=== PATIENT | female | born 1960 | race Caucasian/White ===

== ENCOUNTER 2024-06-15 23:26 | Inpatient (IN) | payer MEDICARE, BC ==
[~2024-06-15] VITALS: Ht 162.6 cm; Wt 87.5 kg
[2024-06-16] LABS: Basophils # (auto) 0 10 ^3/uL (0-0.2); Basophils % (auto) 0.3 % (0.0-2.0); Eosinophils # (auto) 0.1 10 ^3/uL (0-0.8); Eosinophils % (auto) 0.9 % (0.0-7.0); Hematocrit 44.5 % (36.0-46.0); Hemoglobin 15.5 g/dL (12.2-16.2); Lymphocytes # (auto) 1.7 10 ^3/uL (0.4-5.4); Lymphocytes % (auto) 12.2 % (10.0-50.0); Mean Corpuscular Hemoglobin 32.5 pg (28.0-32.0); Mean Corpuscular Hgb Conc. 34.9 g/dL (32.0-36.0); Mean Corpuscular Volume 93.2 fL (80.0-100.0); Monocytes # (auto) 1.8 10 ^3/uL (0-1.3); Monocytes % (auto) 13.1 % (0.0-12.0); Neutrophils % (auto) 73.5 % (37.0-80.0); Platelet Count (auto) 298 10^3/uL (140-450); Red Blood Cells 4.78 10^6/uL (4.0-5.20); Red Cell Distribution Width 13.5 % (11.8-14.3); White Blood Cell 13.7 10^3/uL (4.4-10.8)
[2024-06-16] MEDS: IOHEXOL 300 MG/ML 100ML BOTTLE IJ ONE (00:06)
[2024-06-16 00:12] LABS: Alanine Aminotransferase 10 U/L (7-40); Albumin 4.2 g/dL (3.2-4.8); Alkaline Phosphatase 57 U/L (46-116); Anion Gap 9 (5-15); Aspartate Aminotransferase < 8 U/L (13-40); BUN/Creatinine Ratio 14.9 (10.0-20.0); Blood Urea Nitrogen 10 mg/dL (9-23); Calcium 9.2 mg/dL (8.7-10.4); Carbon Dioxide 16 mmol/L (20-31); Chloride 112 mmol/L (98-107); Glucose 91 mg/dL (74-106); Lipase 34 U/L (12-53); Sodium 137 mmol/L (136-145); Total Protein 6.5 g/dL (5.7-8.2)
--- NOTE | 2024-06-16 00:14 | ED.PDOC ---
GI ASSESSMENT HPI Comments HPI: Poor Historian. 64-year-old female brought in by ambulance from [facility] for further evaluation and possible surgical evaluation. Patient has been complaining of nausea vomiting and right flank right lower back pain with mild right upper quadrant pain for the last three days. The pain is nonspecific. Patient was evaluated that facility and was found with slight WBC of 14 and anion gap of 22 with normal glucose. Normal lipase. Elevated lactic acid. Patient denies any vaginal bleeding or discharge or symptoms. Denies any urinary symptoms. Patient was accepted by our ER provider Dr. Dutton earlier. Patient had a CT scan of abdomen and pelvis without contrast which showed an impression of no acute abdominal or pelvic finding, hepatic steatosis, hepatic cyst, bilateral parapelvic cysts, no hydronephrosis, no intrarenal calculi or ureteral calculi, CT scan also specifically mentions under gallbladder and biliary tree that the gallbladder is unremarkable. No biliary ductal dilatation. No inflammatory changes surrounding gallbladder. Incidental note of pulmonary nodule. Patient had a right upper quadrant ultrasound which showed an impression of distended gallbladder with gallbladder sludge. Positive reported sonographic Andersen sign. Acute cholecystitis not excluded. Although no gallbladder wall thickening is seen. Correlate with clinical findings. Possible mild hepatic steatosis. Moderate right hydronephrosis, obstructive uropathy not excluded. Patient received prior to arrival: Zofran, morphine, Dilaudid, 1 L normal saline bolus, cefoxitin, Dilaudid, Zofran, Dilaudid, Dilaudid, Dilaudid, Past Medcial History: Past Surgical History: REVIEW OF SYSTEMS: CONSTITUTIONAL: Denies acute: fever, diaphoresis, chills, HEAD: Denies acute: headache, photophobia Eyes: Denies acute: Double vision, vision loss, eye pain, eye discharge. EARS: Denies acute: tinnitus, hearing loss, ear discharge, ear pain, THROAT: Denies acute: sore throat, swelling, difficulty swallowing , pain with swallowing, change in voice. NECK: Denies acute: neck pain, neck swelling, stiff neck. HEART: Denies acute : chest pain, palpitations, LUNGS: Denies acute: SOB, wheezing, cough, hemoptysis ABDOMEN: Denies acute: diarrhea, melena , hematemesis, hematochezia SKIN: Denies acute: rash, redness, lesions, itchiness. EXTREMITIES: Denies acute: calf pain, numbness, tingling, weakness, denies pain in extremity. Neuro: Denies acute: focal neurological deficit, motor or sensory focal neurological deficit, tremors, seizure like activity, confusion, dizziness, change in mental status, loss of bowel or bladder function, cauda equina like symptoms. : Denies acute: dysuria, hematuria, increase in urinary frequency. PSYCH: Denies acute: hallucination, suicidal ideation, homicidal ideation. FEMALE: Denies acute: abnormal vaginal bleeding, foul odor, unusual discharge. PHYSICAL EXAM: General: [id number] acute distress, awake and alert. Head: normocephalic, atraumatic. Neck: supple, trachea is midline, no swelling. Throat: Normal phonation. Eyes:, no erythema, no purulent discharge, no proptosis, no icterus. Heart: regular rate, regular rhythm, no significant murmur appreciated. Lungs: no apparent respiratory distress, Able to speak in full sentences. No wheezing, no rhonchi, no crackles. No stridors Clear to auscultation bilaterally. Abdomen: Right upper quadrant tender to palpation, non distended, soft, no guarding, no rebound, + bowel sounds. Right flank and right lumbosacral region is tender to palpation. No lesions appreciated over the area of pain. Neuro: Awake, Alert, oriented to name, self, situation, follows commands GCS=15. Speech is normal. Skin: no petechia, no purpura, no cyanosis, non-pale, not jaundice. Lower extremities: --no - Pitting edema no deformity, no focal swelling, no calf TTP. Makes eye contact. moves all four extremities. Face: no apparent facial droop. CVA tenderness to percussion on the right Chief Complaint: Abdominal Pain Time Seen by MD: 23:28 Reviewed Notes: Nurses Notes, Allergies Allergies: Coded Allergies: Codeine (Verified Allergy, Unknown, 06/15/24) Penicillins (Verified Allergy, Unknown, 06/15/24) Information Source: Patient, Transfer Record, Emergency Med Personnel Mode of Arrival: EMS Was a procedure done? Was a procedure done?: No GI differential Dx Differential Diagnosis: Other (DDX include Diverticulitis, colitis, gastroenteritis, acute abdomen, SBO, enteritis, constipation, volvulus, appendicitis, Gallbladder disease, choledocolithiasis, ascending cholangitis, pancreatitis, intraAbdominal mass/neoplasm, hepatitis, UTI, pylonephritis, kidney stone, aneurysm, dissection, Inflammatory bowel disease, gastroparesis, ischemic bowel, ovarian torsion, ovarian cyst/mass, tubo-ovarian abscess, PID, STD.) X-Ray, Labs, Meds, VS Vital Signs Date Time Temp Pulse Resp B/P (MAP) Pulse Ox O2 Delivery O2 Flow Rate FiO2 06/16/24 00:54 142/100 06/16/24 00:30 99 Room Air* 0 21 06/16/24 00:30 98.6 63 14 142/100 (114) 99 98.6 06/15/24 23:30 98.8 64 18 142/100 (114) 99 Lab Test 06/16/24 01:21 06/16/24 00:36 06/15/24 23:42 Range/Units Urine Color Light-yellow Yellow Urine Clarity Clear Clear Urine pH 5.0 5.0-9.0 Urine Specific [place] 1.018 1.001-1.035 Urine Protein Negative Negative Urine Ketones 3+ H Negative Urine Blood 2+ H Negative /uL Urine Nitrite Negative Negative Urine Bilirubin Negative Negative Urine Urobilinogen Normal Negative mg/dL Urine Leukocyte Esterase 3+ Negative /uL Urine RBC 11 0 - 4 /hpf Urine WBC 32 0 - 5 /hpf Urine Squamous Epithelial Cells Few <5 /hpf Urine Bacteria None seen None Seen /hpf Urine Mucus Few None Seen Urine Glucose Normal Normal mg/dL Troponin I High Sensitivity 7 8 </=34 ng/L White Blood Count 13.7 H 4.4-10.8 10^3/uL Red Blood Count 4.78 4.0-5.20 10^6/uL Hemoglobin 15.5 12.2-16.2 g/dL Hematocrit 44.5 36.0-46.0 % Mean Corpuscular Volume 93.2 80.0-100.0 fL Mean Corpuscular Hemoglobin 32.5 H 28.0-32.0 pg Mean Corpuscular Hemoglobin Concent 34.9 32.0-36.0 g/dL Red Cell Distribution Width 13.5 11.8-14.3 % Platelet Count 298 140-450 10^3/uL Mean Platelet Volume 7.2 6.9-10.8 fL Neutrophils (%) (Auto) 73.5 37.0-80.0 % Lymphocytes (%) (Auto) 12.2 10.0-50.0 % Monocytes (%) (Auto) 13.1 H 0.0-12.0 % Eosinophils (%) (Auto) 0.9 0.0-7.0 % Basophils (%) (Auto) 0.3 0.0-2.0 % Neutrophils # (Auto) 10.0 H 1.6-8.6 10 ^3/uL Lymphocytes # (Auto) 1.7 0.4-5.4 10 ^3/uL Monocytes # (Auto) 1.8 H 0-1.3 10 ^3/uL Eosinophils # (Auto) 0.1 0-0.8 10 ^3/uL Basophils # (Auto) 0 0-0.2 10 ^3/uL Nucleated Red Blood Cells 0.0 % Sodium Level 137 136-145 mmol/L Potassium Level 4.0 3.5-5.1 mmol/L Chloride Level 112 H 98-107 mmol/L Carbon Dioxide Level 16 L 20-31 mmol/L Anion Gap 9 5-15 Blood Urea Nitrogen 10 9-23 mg/dL Creatinine 0.67 0.550-1.02 mg/dL Glomerular Filtration Rate Calc 96 >90 mL/min BUN/Creatinine Ratio 14.9 10.0-20.0 Serum Glucose 91 74-106 mg/dL Lactic Acid Level 0.9 0.4-2.0 mmol/L Calcium Level 9.2 8.7-10.4 mg/dL Total Bilirubin 1.0 0.2-1.0 mg/dL Aspartate Amino Transferase (AST) < 8 L 13-40 U/L Alanine Aminotransferase (ALT) 10 7-40 U/L Alkaline Phosphatase 57 46-116 U/L Total Protein 6.5 5.7-8.2 g/dL Albumin 4.2 3.2-4.8 g/dL Lipase 34 12-53 U/L Current Medications Medications (Trade) Dose Ordered Sig/Yazan Route Start Time Stop Time Status Last Admin Fentanyl Citrate 100 mcg ONCE ONCE IV 06/16/24 00:40 06/16/24 00:41 DC 06/16/24 00:54 Time of 1ST Reevaluation: 03:18 Reevaluation 1ST: Improved Patient Education/Counseling: Diagnosis, Treatment Family Education/Counseling: No Family Present Comments Patient presented with the above HPI.-----abdominal pain/flank pain-workup was initiated. patient was found with the above mentioned diagnosis. Patient was given: Fentanyl Patient ED course and VS have been stabilized. Patient has been reassessed in the ED and remained in a stable condition. Pertinent incidental findings were discussed with the patient and/or family. Patient/family voices understanding and is agreeable with plan. Patient has been observed in the ED adequate length of time to insure improvement/stability. patient was admitted to the medicine team for further evaluation and treatment of their presentation. Patient may benefit from urology and gastroenterology consultation while in the hospital. Patient was transferred to our facility specifically for surgical evaluation as well. All the reports of any imaging studies that were ordered by myself were reviewed by myself. Departure 1 Departure Time of Disposition: 01:15 Impression: Primary Impression: Abdominal pain Additional Impressions: Flank pain Pulmonary nodule Disposition: ADMITTED INPATIENT Admit to: Tele Condition: Guarded Discharged With: Self Critical Care Note Critical Care Time?: No KARELY OCHOA DO Jun 16, 2024 00:14
[2024-06-16 00:30] VITALS: O2SAT 99
[2024-06-16] MEDS: fentaNYL CITRATE 100 MCG/2 ML VL IV ONE (00:54)
[2024-06-16 01:41] LABS: Urine Bacteria None Seen /hpf (None Seen)
[2024-06-16 02:22] LABS: Urine Blood 2+ /uL (Negative); Urine Clarity Clear (Clear); Urine Color Light-Yellow (Yellow); Urine Mucus FEW (None Seen); Urine Protein, UAD Negative (Negative); Urine Specific Gravity 1.018 (1.001-1.035); Urine Urobilinogen Normal (Negative); Urine WBC 32 /hpf (0 - 5)
--- NOTE | 2024-06-16 03:09 | DVH ---
Examination: ABPLIV CLINICAL INDICATION: ABDOMINAL PAIN, R/O LUTHER COMPARISON: None. CONTRAST USED: Intravenous. TECHNIQUE: A contrast CT study of the abdomen and pelvis is performed. The examination was performe d with 5 mm thin slices. Multiplanar reconstructions were obtained. CT scan done according to ALARA (As Low As Reasonably Achievable). FINDINGS: Lung base: Solid nodule, measuring 5 mm is seen in the left lower lobe in subpleural location, image 5, series 3. Subsegmental atelectasis is seen in the left lower lobe. Small sliding hiatus hernia. Liver: The liver is normal in size. Few non-enhancing cysts are seen in both lobes of liver, larges t measuring 2 cm in the left lobe. An enhancing lesion, measuring 18 mm is seen in the right lobe of liver, suggestive of a hemangioma or hepatic adenoma. The portal venous radicles are normal. There is no intrahepatic biliary radicle dilatation. Gallbladder: The gallbladder is normal and reveals no intrinsic abnormality. The common bile duct i s not dilated. Pancreas: The pancreas is normal in size and shape. No focal lesion is seen within. The peripancre atic fat-planes are normal. Spleen: The spleen is normal in size and does not show any focal abnormality. Retroperitoneum: Both adrenal glands are normal in size and morphology. There is no significant retroperitoneal lymphadenopathy. The kidneys are normal in size. Bilateral hydronephrosis / Parapelvic cyst. Suggest correlation with CT urography. Bilateral renal calculi cannot be commented upon due to renal excretion of contrast. Incidentally detected 33 mm right renal [place] 1 simple cortical cyst. No follow-up is recommended as incidentally detected renal lesions are likely benign. Vessels: Aorta, IVC and the mesenteric vessels appear normal. Stomach and bowel: The bowel loops are unremarkable. There is no ascites. Skeletal system: Degenerative changes are seen involving the spine in the form of marginal osteophyt es. CT PELVIS: Appendix: The appendix is unremarkable in appearance. Small umbilical hernia is seen containing fat. Colon: The ascending, transverse, descending, sigmoid colon and rectum are unremarkable. Bladder: The urinary bladder is unremarkable. Uterus and ovaries: Uterus appears normal, No adnexal pathology is seen. No abnormal fluid collection is seen. No pelvic lymphadenopathy is identified. IMPRESSION: 1. Solid nodule, measuring 5 mm is seen in the left lower lobe in subpleural location. [employer] FOLLOW-UP GUIDELINES Recommendation: Low-risk patients: No routine follow-up required. High-risk patients: Suggest optional follow-up CT at [address] at 12 months. 2. Few non-enhancing cysts are seen in both lobes of liver. These are likely benign and require no f ollow-up. 3. An enhancing lesion seen in the right lobe of liver suggestive of a haemangioma or hepatic adeno ma. 4. No abdominal mass or adenopathy. 5. No ascites. 6. No free air or inflammatory changes. 7. No cholelithiasis or acute cholecystitis . 8. Additional chronic and/or ancillary findings as detailed above. 9. Suggest clinical correlation and follow-up as clinically deemed necessary. Electronically Signed 06/16/2024 03:01 Fracisco Ch
[2024-06-16] MEDS ORDERED: MORPHINE SULFATE INJ 2 MG/ml SYRG IV PRN ×2 (04:15)
[2024-06-16] MEDS ORDERED: NITROGLYCERIN 0.4 MG SL TAB SL PRN (04:15)
--- NOTE | 2024-06-16 04:46 | DVHHPRES ---
History of Present Illness Resident Creating Document: EVELYN SMALL RESIDENT History of Present Illness This is a 64-year-old female with no significant past medical history transferred from [facility] with a chief complaint of severe pain in the lower back region, which she describes as feeling like her kidneys are on fire. The pain has been persistent since last Thursday and rates it as a 13 on a scale of 1 to 10. The pain is characterized as sharp at times, but mostly as an intense ache that feels deep inside, extending from the back to the lower abdomen. The patient also reports experiencing fever with a measured temperature of 101F at home. She denies any burning sensation during urination but mentions episodes of vomiting and not able to keep anything down the throat. The patient has not eaten anything and no bowel movement since last Thursday and was given two enemas two days ago, which resulted in the passage of small, hard stools. She denies chest pain, shortness of breath, dizziness and diaphoresis. She lives alone and has a history of tubal ligation surgery four years ago. She is a social drinker and denies any current drug use. The patient has not had a colonoscopy or endoscopy before but has undergone a pap test and has a mammography scheduled for next week. Her primary care doctor is Dr. Tompkins. Past Medical History No significant past medical history Past Surgical History: Tubal Ligation Family History: None Smoke: No ALCOHOL: occassional Drugs: None Lives: Alone Review of Systems Constitutional: Yes: Fever, Malaise Eyes: Pain; No: Vision change, Conjunctivae inflammation, Eyelid inflammation, Other, Redness ENT: No: Ear pain, Ear discharge, Nose pain, Nose discharge, Nose congestion, Mouth pain, Mouth swelling, Throat pain, Throat swelling, Other Respiratory: No: Cough, Dry, Shortness of breath, SOB with excertion, Wheezing, Hemoptysis, Pleuritic Pain, Sputum, Wheezing, Other Cardiovascular: No: Chest Pain, Palpitations, Orthopnea, Paroxysmal Noc. Dyspnea, Edema, Lt Headedness, Other Gastrointestinal: Nausea, Vomiting, Abdominal Pain, Constipation; No: Diarrhea, Melena, Hematochezia, Other Genitourinary: No Dysuria, No Frequency, No Incontinence, No Hematuria, No Retention, No Other Musculoskeletal: No: other, neck pain, shoulder pain, arm pain, back pain, hand pain, leg pain, foot pain Skin: No: Rash, Lesions, Jaundice, Bruising, Other Neurological: No: Weakness, Numbness, Incoordination, Change in speech, Confusion, Seizures, Other Allergies: Coded Allergies: Codeine (Verified Allergy, Unknown, 06/15/24) Penicillins (Verified Allergy, Unknown, 06/15/24) Medications Current Medications Medications Dose Ordered Sig/Yazan Route Start Time Stop Time Status Last Admin Dose Admin Sodium Chloride 1,000 ml @ 120 mls/hr Q8H20M IV 06/16/24 04:15 Acetaminophen 325 mg Q4HP PRN PO 06/16/24 04:15 Acetaminophen/ Hydrocodone Bitart 1 tab Q4HP PRN PO 06/16/24 04:15 UNV Ondansetron HCl 4 mg Q4HP PRN IV 06/16/24 04:15 Enoxaparin Sodium 40 mg DAILY SC 06/16/24 10:00 Morphine Sulfate 2 mg Q4HPRN PRN IV 06/16/24 04:15 UNV Nitroglycerin 0.4 mg Q5MINP PRN SL 06/16/24 04:15 Morphine Sulfate 2 mg Q30M PRN IV 06/16/24 04:15 UNV Ceftriaxone Sodium 50 ml @ 100 mls/hr DAILY@09 IV 06/16/24 05:00 Exam Vital Signs Vital Signs Date Time Temp Pulse Resp B/P (MAP) Pulse Ox O2 Delivery O2 Flow Rate FiO2 06/16/24 02:30 66 20 138/84 (102) 95 06/16/24 00:30 Room Air* 0 21 06/16/24 00:30 98.6 98.6 General Appearance: Alert, Oriented X3, Cooperative, mild distress HEENT: Atraumatic, PERRLA, EOMI, Mucous membr. moist/pink Respiratory: Clear to auscultation, Normal air movement Cardiovascular: Regular rate, Normal S1, Normal S2, No murmurs Abdominal: Normal bowel sounds, Soft, Other ([place] in the rt flank and lumbar area) Extremities: No clubbing, No cyanosis, No edema, Normal pulses, No tenderness/swelling Skin: No rashes, No breakdown, No significant lesion Neuro: Normal gait, Normal speech, Strength at 5/5 X4 ext, Normal tone, Sensation intact (Grossly intact cranial nerves) Psych/Mental Status: Mental status NL, Mood NL Labs/Xrays Labs Test 06/16/24 01:21 06/16/24 00:36 06/15/24 23:42 Range/Units Urine Color Light-yellow Yellow Urine Clarity Clear Clear Urine pH 5.0 5.0-9.0 Urine Specific [place] 1.018 1.001-1.035 Urine Protein Negative Negative Urine Ketones 3+ H Negative Urine Blood 2+ H Negative /uL Urine Nitrite Negative Negative Urine Bilirubin Negative Negative Urine Urobilinogen Normal Negative mg/dL Urine Leukocyte Esterase 3+ Negative /uL Urine RBC 11 0 - 4 /hpf Urine WBC 32 0 - 5 /hpf Urine Squamous Epithelial Cells Few <5 /hpf Urine Bacteria None seen None Seen /hpf Urine Mucus Few None Seen Urine Glucose Normal Normal mg/dL Troponin I High Sensitivity 7 </=34 ng/L White Blood Count 13.7 H 4.4-10.8 10^3/uL Red Blood Count 4.78 4.0-5.20 10^6/uL Hemoglobin 15.5 12.2-16.2 g/dL Hematocrit 44.5 36.0-46.0 % Mean Corpuscular Volume 93.2 80.0-100.0 fL Mean Corpuscular Hemoglobin 32.5 H 28.0-32.0 pg Mean Corpuscular Hemoglobin Concent 34.9 32.0-36.0 g/dL Red Cell Distribution Width 13.5 11.8-14.3 % Platelet Count 298 140-450 10^3/uL Mean Platelet Volume 7.2 6.9-10.8 fL Neutrophils (%) (Auto) 73.5 37.0-80.0 % Lymphocytes (%) (Auto) 12.2 10.0-50.0 % Monocytes (%) (Auto) 13.1 H 0.0-12.0 % Eosinophils (%) (Auto) 0.9 0.0-7.0 % Basophils (%) (Auto) 0.3 0.0-2.0 % Neutrophils # (Auto) 10.0 H 1.6-8.6 10 ^3/uL Lymphocytes # (Auto) 1.7 0.4-5.4 10 ^3/uL Monocytes # (Auto) 1.8 H 0-1.3 10 ^3/uL Eosinophils # (Auto) 0.1 0-0.8 10 ^3/uL Basophils # (Auto) 0 0-0.2 10 ^3/uL Nucleated Red Blood Cells 0.0 % Sodium Level 137 136-145 mmol/L Potassium Level 4.0 3.5-5.1 mmol/L Chloride Level 112 H 98-107 mmol/L Carbon Dioxide Level 16 L 20-31 mmol/L Anion Gap 9 5-15 Blood Urea Nitrogen 10 9-23 mg/dL Creatinine 0.67 0.550-1.02 mg/dL Glomerular Filtration Rate Calc 96 >90 mL/min BUN/Creatinine Ratio 14.9 10.0-20.0 Serum Glucose 91 74-106 mg/dL Lactic Acid Level 0.9 0.4-2.0 mmol/L Calcium Level 9.2 8.7-10.4 mg/dL Total Bilirubin 1.0 0.2-1.0 mg/dL Aspartate Amino Transferase (AST) < 8 L 13-40 U/L Alanine Aminotransferase (ALT) 10 7-40 U/L Alkaline Phosphatase 57 46-116 U/L Total Protein 6.5 5.7-8.2 g/dL Albumin 4.2 3.2-4.8 g/dL Lipase 34 12-53 U/L Assessment/Plan Assessment/Plan Assessment and plan: # intractable abdominal pain and vomiting likely due to obstructive uropathy - CT scan of the abdomen pelvis revealed questionable bilateral hydronephrosis - Patient is NPO - IV normal saline at 120 mL/hour - IV morphine 2 mg Q 4 p.r.n. - IV ondansetron 4 mg q.4 p.r.n. - Consulted Urology # Acute cystitis - U/A is consistent UTI - IV ceftriaxone 1 g daily # Possible hepatic adenoma/hemangioma -Outpatient GI follow up. # Incidental diagnosis of pulmonary nodule on CT chest - Ct chest revealed solid nodule, measuring 5 mm is seen in the left lower lobe in subpleural location - Outpatient follow up with pulmonology. # PUD prophylaxis - Protonix 40 mg IV daily # DVT prophylaxis - Lovenox 40 mg sc daily Goal of care discussed with the patient for more than 20 minutes full code Plan of treatment discussed with Dr. Hernandez Plan discussed with: Patient, Other My Orders Orders - EVELYN SMALL RESIDENT Procedure Category Date Status Time Admit ADMIT 06/16/24 Transmitted 04:01 Allergies YULISSA 06/16/24 In Process 04:01 Code Status CODE 06/16/24 Transmitted 04:01 Sodium Chloride 0.9% PHA 06/16/24 In Process 04:15 Acetaminophen Tablet PHA 06/16/24 In Process (Tylenol Tablet) 04:15 Hydrocodone-Acet PHA 06/16/24 Pending 5/325mg Tab ([place] 04:15 Ondansetron Hcl PHA 06/16/24 In Process (Zofran) 04:15 Enoxaparin Sodium PHA 06/16/24 In Process (Lovenox) 10:00 Complete Blood Count LAB 06/17/24 Verified 04:00 Comprehensive LAB 06/17/24 Verified Metabolic Panel 04:00 Npo (Nothing By DIET 06/16/24 Transmitted Mouth) Diet Breakfast Morphine Sulfate PHA 06/16/24 Pending Injection 04:15 Nitroglycerin PHA 06/16/24 In Process Sublingual (Ntrostat 04:15 Morphine Sulfate PHA 06/16/24 Pending Injection 04:15 Oxygen By Nasal RT 06/16/24 Transmitted Cannula 04:01 Stat Ekg For Chest YULISSA 06/16/24 In Process Pain 04:01 Notify Md Of Changes YULISSA 06/16/24 In Process From Base 04:01 Medical Imaging Technician For YULISSA 06/16/24 In Process 24 Hours 04:01 Emergency Dysrhythmia YULISSA 06/16/24 In Process Protocol 04:01 Rhythm Strips Once YULISSA 06/16/24 In Process Every Shift 04:01 Ceftriaxone 1gm/50ml PHA 06/16/24 In Process D5w (Rocephin) 05:00 Thyroid Stimulating LAB 06/16/24 Logged Hormone 04:22 Hemoglobin A1c LAB 06/16/24 Logged 04:22 Vitamin D, 25-Hydroxy LAB 06/16/24 Logged 04:22 Vitamin B12 LAB 06/16/24 Logged 04:22 Drug Screen LAB 06/16/24 In Process 04:28 Chest Portable XY 06/16/24 Logged 04:28 Date of Service: Jun 16, 2024 Billing Provider: TERRANCE HERNANDEZ MD Common Visit Codes: 62589-[id number] INP/OBS CARE (HIGH) Secondary Visit Codes: [id number] CARE PLAN 30 MINUTES EVELYN SMALL Jun 16, 2024 04:46 TERRANCE HERNANDEZ MD Jun 16, 2024 15:46
[2024-06-16 04:49] LABS: Amphetamine Screen, Urine Neg (NEGATIVE); Barbiturate Scree,Urine Neg (NEGATIVE); Benzodiazephine Screen, Urine Neg (NEGATIVE); Cocaine Screen, Urine Neg (NEGATIVE)
[2024-06-16 04:50] LABS: Cannabinoid Screen, Urine Pos (NEGATIVE); Opiate Scree,Urine Neg (NEGATIVE); Phencyclidine Screen, Urine Neg (NEGATIVE)
[2024-06-16] MEDS: MORPHINE SULFATE INJ 2 MG/ml SYRG IV PRN (04:58)
[2024-06-16] MEDS: ONDANSETRON HCL 4 MG/2 ML VIAL IV PRN (04:58)
[2024-06-16] MEDS: SODIUM CHLORIDE 0.9% 1,000 ML IV SCH (04:59)
[2024-06-16] MEDS: cefTRIAXone 1GM/50ML D5W 50 ML IV SCH (05:11)
--- NOTE | 2024-06-16 05:36 | DVH ---
CHEST RADIOGRAPH Indication:chest pain Technique: Single frontal view of the chest was obtained Comparison: None FINDINGS: Lines and Tubes: None Lungs: No focal consolidation. Pleura: No effusion. No pneumothorax. Cardiomediastinal contours: Unremarkable Bones: No acute osseous abnormality. IMPRESSION: 1. No acute cardiopulmonary disease.
[2024-06-16] MEDS: HYDROcodone-ACET 5/325MG TAB PO PRN (06:24)
[2024-06-16 08:00] VITALS: PULSE 70; RESP 19; O2SAT 97
[2024-06-16] MEDS: ACETAMINOPHEN 325 MG TAB PO PRN (08:02)
[2024-06-16 08:29] LABS: Carbon Dioxide 16 mmol/L (20-31); Chloride 110 mmol/L (98-107); Potassium 3.9 mmol/L (3.5-5.1); Sodium 137 mmol/L (136-145)
[2024-06-16 08:30] LABS: Anion Gap 11 (5-15); Calcium 9.6 mg/dL (8.7-10.4)
[2024-06-16 08:34] LABS: Basophils # (auto) 0.1 10 ^3/uL (0-0.2); Basophils % (auto) 0.5 % (0.0-2.0); Eosinophils # (auto) 0.1 10 ^3/uL (0-0.8); Eosinophils % (auto) 0.8 % (0.0-7.0); Hematocrit 45.1 % (36.0-46.0); Hemoglobin 15.5 g/dL (12.2-16.2); Lymphocytes # (auto) 1.6 10 ^3/uL (0.4-5.4); Lymphocytes % (auto) 11.9 % (10.0-50.0); Mean Corpuscular Hemoglobin 32.2 pg (28.0-32.0); Mean Corpuscular Hgb Conc. 34.4 g/dL (32.0-36.0); Mean Corpuscular Volume 93.8 fL (80.0-100.0); Monocytes # (auto) 1.8 10 ^3/uL (0-1.3); Neutrophils % (auto) 73.8 % (37.0-80.0); Nucleated Red Blood Cells % 0.1 %; Platelet Count (auto) 274 10^3/uL (140-450); Red Blood Cells 4.81 10^6/uL (4.0-5.20); Red Cell Distribution Width 13.1 % (11.8-14.3); White Blood Cell 13.6 10^3/uL (4.4-10.8)
[2024-06-16 08:35] LABS: BUN/Creatinine Ratio 13.7 (10.0-20.0); Blood Urea Nitrogen 10 mg/dL (9-23); Glucose 90 mg/dL (74-106)
--- NOTE | 2024-06-16 09:51 | DVH ---
RENAL ULTRASOUND CLINICAL HISTORY: Flank pain TECHNIQUE: Multiple ultrasound images of the kidneys and bladder were obtained. COMPARISON: None FINDINGS: The right kidney measures 11.6 cm in length. The left kidney measures 9.7 cm. There is a 4.4 cm right lower pole benign-appearing renal sinus cyst. There is left renal pelviectasis. There is no sonograp hic evidence of nephrolithiasis. Poorly filled bladder grossly appears unremarkable. The prevoid volume measures 47 cc. IMPRESSION: 1. Left renal pelviectasis. There is no sonographic evidence of nephrolithiasis. 2. 4.4 cm right lower pole benign-appearing renal sinus cyst. HS:Y
[2024-06-16] MEDS: ENOXAPARIN SOD 40 MG/0.4 ML SYRINGE SC SCH (10:00)
[2024-06-16] MEDS: PANTOPRAZOLE 40 MG/10 ML VIAL INJ IV SCH (10:06)
--- NOTE | 2024-06-16 11:24 | DVHINCON2 ---
Date of service: Jun 16, 2024 Referring Physician hospitalist Reason for Consultation pelviectasis, punctate renal stones History of Present Illness History Source: Patient, Family, RN Notes, MD Notes Exam Limitations: No limitations HPI 64 yo female denies past medical history with right lower back pain that radiates along the right lateral thigh to the knee and is extremely tender to palpation. She describes it as raw and burning, even the sheets touching it causes pain. She woke up with the pain suddenly 1 week ago. She reports not eating or drinking for the past week because she cant keep anything down. Nothing makes it better. She denies urinary concerns. She is constipated x 3 days which is not normal for her. She had dilaudid which gave her relief for a a couple of hours and she was able to sleep. She mentioned that her sister recently had shingles but she did not have contact with her. 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 hearing, Normal speech, PERRL Neuro/Mental St: Alert, Oriented Appearance: Appropriate appearance, Appropriate insight Eye contact/ Speech: Cooperative, Good eye contact, Normal speech Thoughts/Psych: Normal thought pattern Coordination/Gait: Other (antalgic gait) Skin Exam: Normal inspection, Normal color, Warm/dry Lymphatic: Normal inspection Labs/Xrays [place] [address] Ph: [phone] DIAGNOSTIC IMAGING Diagnostic Imaging Report : [id number] Signed PATIENT: RAYMUNDO JIMENEZ ACCT: [id number] UNIT: [id number] : 1960 LOC: OVERFLOW ROOM / BED: [address] [place] [address] / A AGE / SEX: 64 / F ADM STATUS: ADM IN SERVICE 1140 ORDERING PHYSICIAN: NATHAN SHEPHERD MD PROCEDURE(s): ABPL - CT AB PEL WO CON-NO ORAL OR IV REASON: abd pain ORDER NUMBER(s): [id number], ACCESSION NUMBER(s): [id number] Exam: CT CT AB PEL WO CON-NO ORAL OR IV History: abd pain Comparison Study: CT scan of the abdomen pelvis performed earlier same date, 1:28 a.m. TECHNIQUE: Multidetector CT of the abdomen and pelvis was performed from lung bases to ischial tuberosities. Imaging was performed without IV contrast using axial images. Coronal and sagittal reformats were obtained from the axial data set by the technologist. Radiation Dose Information: CT Dose: CTDI volume is 14.3 mGy. Dose-length product is 733.6 mGy*cm FINDINGS: Evaluation of solid organs is limited due to lack of intravenous contrast use. Findings: Lung Bases: Is a 5 mm left lower lobe pulmonary nodule. Normal heart size. No pleural or pericardial effusion. Liver: The liver is normal in size. There is a 2.2 cm low attenuating lesion in the left hepatic lobe compatible with a cyst. Gallbladder and Biliary Tree: The gallbladder is unremarkable. No biliary ductal dilatation. Spleen: Unremarkable Pancreas: The pancreas is grossly normal in appearance. Adrenal Glands: Unremarkable Kidneys: There are bilateral radiodensities in the collecting systems which are decreased since the prior contrast-enhanced study performed earlier same date, consistent with residual contrast. There is a punctate nonobstructing calculus in the upper pole of the right kidney (coronal image 75) and punctate nonobstructing calculus in the lower pole of the left kidney ( coronal image 75). There are bilateral parapelvic cysts. 3.3 cm right cortical renal cyst. No evidence of hydronephrosis in either kidney. No ureteral calculi or hydroureter. GI Tract: The stomach is grossly normal in appearance. Small bowel and colon are normal in caliber and distribution. Normal appendix is visualized in the right lower quadrant without findings of appendicitis. Peritoneal cavity: No pneumoperitoneum. No ascites. Lymphadenopathy: No mesenteric, retroperitoneal or periportal lymphadenopathy. Abdominal Wall and Mesentery: Unremarkable. Vasculature: The visualized abdominal aorta is normal in size and caliber. Evaluation of abdominal and pelvic vessels is limited due to lack of intravenous contrast. Pelvic Organs: Uterus and adnexal structures are unremarkable. Urinary Bladder: Excreted contrast is present in the urinary bladder. There is no filling defect or irregular wall thickening. Musculoskeletal: No aggressive focal bony lesions, acute fractures or dislocation. Soft tissues: Fat containing umbilical hernia. IMPRESSION: 1. Punctate bilateral nonobstructing nephrolithiasis. Bilateral residual contrast in the collecting systems. No hydronephrosis in either kidney. Bilateral parapelvic cysts. Right cortical renal cyst. 2. Normal appearance of the urinary bladder without mass or filling defect. 3. 5 mm left lower lobe pulmonary nodule. Follow-up according to Fleischner recommendations recommended. Radiation optimization: All CT scans at this facility use at least one of these dose optimization techniques: automated exposure control mA and/or kV adjustment per patient size (includes targeted exams where dose is matched to clinical indication) or iterative reconstruction. ATED BY: JD TIJERINA MD DICTATED DATE/TIME: 06/16/24 131 SIGNED BY: JD TIJERINA MD SIGNED DATE/TIME: 06/16/24 131 CC: [place] [address] Ph: [phone] DIAGNOSTIC IMAGING Diagnostic Imaging Report : [id number] Signed PATIENT: RAYMUNDO JIMENEZ ACCT: [id number] UNIT: [id number] : 1960 LOC: ER ROOM / BED: / AGE / SEX: 64 / F ADM STATUS: REG ER SERVICE 2339 ORDERING PHYSICIAN: KARELY OCHOA DO PROCEDURE(s): ABPLIV - CT AB PEL WITH IV CON ONLY REASON: ABDOMINAL PAIN, R/O LUTHER ORDER NUMBER(s): [id number], ACCESSION NUMBER(s): [id number] Examination: ABPLIV CLINICAL INDICATION: ABDOMINAL PAIN, R/O LUTHER COMPARISON: None. CONTRAST USED: Intravenous. TECHNIQUE: A contrast CT study of the abdomen and pelvis is performed. The examination was performed with 5 mm thin slices. Multiplanar reconstructions were obtained. CT scan done according to ALARA (As Low As Reasonably Achievable). FINDINGS: Lung base: Solid nodule, measuring 5 mm is seen in the left lower lobe in subpleural location, image 5, series 3. Subsegmental atelectasis is seen in the left lower lobe. Small sliding hiatus hernia. Liver: The liver is normal in size. Few non-enhancing cysts are seen in both lobes of liver, largest measuring 2 cm in the left lobe. An enhancing lesion, measuring 18 mm is seen in the right lobe of liver, suggestive of a hemangioma or hepatic adenoma. The portal venous radicles are normal. There is no intra hepatic biliary radicle dilatation. Gallbladder: The gallbladder is normal and reveals no intrinsic abnormality. The common bile duct is not dilated. Pancreas: The pancreas is normal in size and shape. No focal lesion is seen within. The peripancreatic fat-planes are normal. Spleen: The spleen is normal in size and does not show any focal abnormality. Retroperitoneum: Both adrenal glands are normal in size and morphology. There is no significant retroperitoneal lymphadenopathy. The kidneys are normal in size. Bilateral hydronephrosis / Parapelvic cyst. Suggest correlation with CT urography. Bilateral renal calculi cannot be commented upon due to renal excretion of contrast. Incidentally detected 33 mm right renal [place] 1 simple cortical cyst. No follow-up is recommended as incidentally detected renal lesions are likely benign. Vessels: Aorta, IVC and the mesenteric vessels appear normal. Stomach and bowel: The bowel loops are unremarkable. There is no ascites. Skeletal system: Degenerative changes are seen involving the spine in the form of marginal osteophytes. CT PELVIS: Appendix: The appendix is unremarkable in appearance. Small umbilical hernia is seen containing fat. Colon: The ascending, transverse, descending, sigmoid colon and rectum are unremarkable. Bladder: The urinary bladder is unremarkable. Uterus and ovaries: Uterus appears normal, No adnexal pathology is seen. No abnormal fluid collection is seen. No pelvic lymphadenopathy is identified. IMPRESSION: 1. Solid nodule, measuring 5 mm is seen in the left lower lobe in subpleural location. [employer] FOLLOW-UP GUIDELINES Recommendation: Low-risk patients: No routine follow-up required. High-risk patients: Suggest optional follow-up CT at [address] at 12 months. 2. Few non-enhancing cysts are seen in both lobes of liver. These are likely benign and require no follow-up. 3. An enhancing lesion seen in the right lobe of liver suggestive of a haemangioma or hepatic adenoma. 4. No abdominal mass or adenopathy. 5. No ascites. 6. No free air or inflammatory changes. 7. No cholelithiasis or acute cholecystitis . 8. Additional chronic and/or ancillary findings as detailed above. 9. Suggest clinical correlation and follow-up as clinically deemed necessary. Electronically Signed 06/16/2024 03:01 Fracisco Ch ATED BY: DIMA MA MD DICTATED DATE/TIME: 06/16/24300 SIGNED BY: DIMA MA MD SIGNED DATE/TIME: 06/16/24300 CC: [place] [address] Ph: [phone] DIAGNOSTIC IMAGING Diagnostic Imaging Report : [id number] Signed PATIENT: RAYMUNDO JIMENEZ ACCT: [id number] UNIT: [id number] : 1960 LOC: OVERFLOW ROOM / BED: [address] [place] [address] AGE / SEX: 64 / F ADM STATUS: ADM IN SERVICE 9 ORDERING PHYSICIAN: RAJIV BOLTON RESIDENT PROCEDURE(s): KIDUS - KIDNEY REASON: Flank pain ORDER NUMBER(s): [id number], ACCESSION NUMBER(s): [id number] RENAL ULTRASOUND CLINICAL HISTORY: Flank pain TECHNIQUE: Multiple ultrasound images of the kidneys and bladder were obtained. COMPARISON: None FINDINGS: The right kidney measures 11.6 cm in length. The left kidney measures 9.7 cm. There is a 4.4 cm right lower pole benign-appearing renal sinus cyst. There is left renal pelviectasis. There is no sonographic evidence of nephrolithiasis. Poorly filled bladder grossly appears unremarkable. The prevoid volume measures 47 cc. IMPRESSION: 1. Left renal pelviectasis. There is no sonographic evidence of nephrolithiasis. 2. 4.4 cm right lower pole benign-appearing renal sinus cyst. HS:Y ATED BY: FREDRICK KELLY MD DICTATED DATE/TIME: 06/16/24948 SIGNED BY: FREDRICK KELLY MD SIGNED DATE/TIME: 06/16/24948 CC: Labs Test 06/16/24 04:50 06/16/24 01:21 06/16/24 00:36 06/15/24 23:42 Range/Units White Blood Count 13.6 H 4.4-10.8 10^3/uL Red Blood Count 4.81 4.0-5.20 10^6/uL Hemoglobin 15.5 12.2-16.2 g/dL Hematocrit 45.1 36.0-46.0 % Mean Corpuscular Volume 93.8 80.0-100.0 fL Mean Corpuscular Hemoglobin 32.2 H 28.0-32.0 pg Mean Corpuscular Hemoglobin Concent 34.4 32.0-36.0 g/dL Red Cell Distribution Width 13.1 11.8-14.3 % Platelet Count 274 140-450 10^3/uL Mean Platelet Volume 8.3 6.9-10.8 fL Neutrophils (%) (Auto) 73.8 37.0-80.0 % Lymphocytes (%) (Auto) 11.9 10.0-50.0 % Monocytes (%) (Auto) 13.0 H 0.0-12.0 % Eosinophils (%) (Auto) 0.8 0.0-7.0 % Basophils (%) (Auto) 0.5 0.0-2.0 % Neutrophils # (Auto) 10.0 H 1.6-8.6 10 ^3/uL Lymphocytes # (Auto) 1.6 0.4-5.4 10 ^3/uL Monocytes # (Auto) 1.8 H 0-1.3 10 ^3/uL Eosinophils # (Auto) 0.1 0-0.8 10 ^3/uL Basophils # (Auto) 0.1 0-0.2 10 ^3/uL Nucleated Red Blood Cells 0.1 % Sodium Level 137 136-145 mmol/L Potassium Level 3.9 3.5-5.1 mmol/L Chloride Level 110 H 98-107 mmol/L Carbon Dioxide Level 16 L 20-31 mmol/L Anion Gap 11 5-15 Blood Urea Nitrogen 10 9-23 mg/dL Creatinine 0.73 0.550-1.02 mg/dL Glomerular Filtration Rate Calc 91 >90 mL/min BUN/Creatinine Ratio 13.7 10.0-20.0 Serum Glucose 90 74-106 mg/dL Hemoglobin A1c 4.8 <5.7 % A1C Calcium Level 9.6 8.7-10.4 mg/dL Vitamin B12 Level 547 211-911 pg/mL Vitamin D 25-Hydroxy 37.0 30.0-100 ng/mL Thyroid Stimulating Hormone (TSH) 0.85 0.55-4.78 uIU/mL Urine Color Light-yellow Yellow Urine Clarity Clear Clear Urine pH 5.0 5.0-9.0 Urine Specific [place] 1.018 1.001-1.035 Urine Protein Negative Negative Urine Ketones 3+ H Negative Urine Blood 2+ H Negative /uL Urine Nitrite Negative Negative Urine Bilirubin Negative Negative Urine Urobilinogen Normal Negative mg/dL Urine Leukocyte Esterase 3+ Negative /uL Urine RBC 11 0 - 4 /hpf Urine WBC 32 0 - 5 /hpf Urine Squamous Epithelial Cells Few <5 /hpf Urine Bacteria None seen None Seen /hpf Urine Mucus Few None Seen Urine Glucose Normal Normal mg/dL Urine Opiates Screen Neg NEGATIVE Urine Fentanyl Screen Pos NEGATIVE Urine Barbiturates Screen Neg NEGATIVE Urine Phencyclidine Screen Neg NEGATIVE Urine Amphetamines Screen Neg NEGATIVE Urine Benzodiazepines Screen Neg NEGATIVE Urine Cocaine Screen Neg NEGATIVE Urine Cannabinoids Screen Pos NEGATIVE Troponin I High Sensitivity 7 </=34 ng/L Lactic Acid Level 0.9 0.4-2.0 mmol/L Total Bilirubin 1.0 0.2-1.0 mg/dL Aspartate Amino Transferase (AST) < 8 L 13-40 U/L Alanine Aminotransferase (ALT) 10 7-40 U/L Alkaline Phosphatase 57 46-116 U/L Total Protein 6.5 5.7-8.2 g/dL Albumin 4.2 3.2-4.8 g/dL Lipase 34 12-53 U/L Assessment/Plan Problem List: (1) Pulmonary nodule (2) Abdominal pain (3) Back pain (4) Nerve pain (5) Nausea & vomiting Plan added gabapentin 300 mg po BID continue pain meds and nsaids consult pain management consider hip/lumbar MRI consider neurology consult urology signing off Plan discussed with: Patient, Daughter, Other ARTURO VALENCIA NP Jun 16, 2024 11:24
[2024-06-16] MEDS: HYDROmorphone HCL 2 MG/ML VL/or syr IV ONE (12:45)
--- NOTE | 2024-06-16 13:16 | DVH ---
Exam: CT CT AB PEL WO CON-NO ORAL OR IV History: abd pain Comparison Study: CT scan of the abdomen pelvis performed earlier same date, 1:28 a.m. TECHNIQUE: Multidetector CT of the abdomen and pelvis was performed from lung bases to ischial tubero sities. Imaging was performed without IV contrast using axial images. Coronal and sagittal reformats were obtained from the axial data set by the technologist. Radiation Dose Information: CT Dose: CTDI volume is 14.3 mGy. Dose-length product is 733.6 mGy*cm FINDINGS: Evaluation of solid organs is limited due to lack of intravenous contrast use. Findings: Lung Bases: Is a 5 mm left lower lobe pulmonary nodule. Normal heart size. No pleural or pericardial effusion. Liver: The liver is normal in size. There is a 2.2 cm low attenuating lesion in the left hepatic lob e compatible with a cyst. Gallbladder and Biliary Tree: The gallbladder is unremarkable. No biliary ductal dilatation. Spleen: Unremarkable Pancreas: The pancreas is grossly normal in appearance. Adrenal Glands: Unremarkable Kidneys: There are bilateral radiodensities in the collecting systems which are decreased since the prior contrast-enhanced study performed earlier same date, consistent with residual contrast. There is a punctate nonobstructing calculus in the upper pole of the right kidney (coronal image 75) and p unctate nonobstructing calculus in the lower pole of the left kidney ( coronal image 75). There are b ilateral parapelvic cysts. 3.3 cm right cortical renal cyst. No evidence of hydronephrosis in either kidney. No ureteral calculi or hydroureter. GI Tract: The stomach is grossly normal in appearance. Small bowel and colon are normal in caliber an d distribution. Normal appendix is visualized in the right lower quadrant without findings of append icitis. Peritoneal cavity: No pneumoperitoneum. No ascites. Lymphadenopathy: No mesenteric, retroperitoneal or periportal lymphadenopathy. Abdominal Wall and Mesentery: Unremarkable. Vasculature: The visualized abdominal aorta is normal in size and caliber. Evaluation of abdominal a nd pelvic vessels is limited due to lack of intravenous contrast. Pelvic Organs: Uterus and adnexal structures are unremarkable. Urinary Bladder: Excreted contrast is present in the urinary bladder. There is no filling defect or irregular wall thickening. Musculoskeletal: No aggressive focal bony lesions, acute fractures or dislocation. Soft tissues: Fat containing umbilical hernia. IMPRESSION: 1. Punctate bilateral nonobstructing nephrolithiasis. Bilateral residual contrast in the collecting s ystems. No hydronephrosis in either kidney. Bilateral parapelvic cysts. Right cortical renal cyst. 2. Normal appearance of the urinary bladder without mass or filling defect. 3. 5 mm left lower lobe pulmonary nodule. Follow-up according to Fleischner recommendations recommend ed. Radiation optimization: All CT scans at this facility use at least one of these dose optimization kaiser hniques: automated exposure control mA and/or kV adjustment per patient size (includes targeted exam s where dose is matched to clinical indication) or iterative reconstruction.
[2024-06-16] MEDS: GABAPENTIN 300 MG CAP PO SCH (16:30)
[2024-06-16] MEDS: KETOROLAC TROMETH 30 MG/ML 1ML VIAL IV ONE (16:31)
[2024-06-16] MEDS: HYDROmorphone HCL 2 MG/ML VL/or syr IV PRN (17:52)
--- NOTE | 2024-06-16 18:08 | DVHPNRES ---
Progress Note Date Seen: Jun 16, 2024 Resident Creating Document: RAJIV BOLTON RESIDENT Medical Necessity Reason Pt with a Central, PICC or Fol: No Subjective Review of Systems Patient is 64 years old female with no significant past medical history came with a complaint of right lower back pain started 8-9 days ago. As per patient pain developed gradually, 10/10, sharp in nature, radiating to the right thigh, no aggravating factor, some relief with pain medication. Patient also complained of nausea and vomiting which was mainly food and water but no blood. Patient also reported having fever 101F at home. Patient also endorsed constipation for which she took laxatives. Patient denied any chest pain, short of breath, acute joint pain or swelling, headache, vertigo. With the symptom patient went to [facility] and as per patient patient was told she has gallbladder sludge. Recent lab workup revealed leukocytosis, WBC 13.7, urinalysis revealed leukocyte esterase 3+, WBC 32, UDS was positive for fentanyl and cannabinoids. CT abdomen and pelvis with contrast revealed- Bilateral hydronephrosis / Parapelvic cyst. Suggest correlation with CT urography. Bilateral renal calculi cannot be commented upon due to renal excretion of contrast. Incidentally detected 33 mm right renal [place] 1 simple cortical cyst. No follow-up is recommended as incidentally detected renal lesions are likely benign.Solid nodule, measuring 5 mm is seen in the left lower lobe in subpleural location, image 5, series 3. Subsegmental atelectasis is seen in the left lower lobe.An enhancing lesion seen in the right lobe of liver suggestive of a haemangioma or hepatic adenoma. CT scan of the abdomen and pelvis without contrast revealed-Punctate bilateral nonobstructing nephrolithiasis. Bilateral residual contrast in the collecting systems. No hydronephrosis in either kidney. Bilateral parapelvic cysts. Right cortical renal cyst. Normal appearance of the urinary bladder without mass or filling defect. 5 mm left lower lobe pulmonary nodule. Follow-up according to Fleischner recommendations recommended. Ultrasound of the kidney revealed- Left renal pelviectasis. There is no sonographic evidence of nephrolithiasis. 4.4 cm right lower pole benign- appearing renal sinus cyst. CXR no Acute cardiopulmonary disease PMH-nonsignificant PSH- tubal ligation Allergy- codeine, penicillin Personal History/ Social History- ex-smoker, social alcoholic, use weeds Patient was seen today at the bedside. Patient complained of right flank pain Cardiovascular- deny acute chest pain or shortness of breath or cough or palpitation Respiratory- denies cough or short of breath or wheezing Gastrointestinal- denies any rectal bleeding, nausea or vomiting Musculoskeletal-denies acute joint swelling or tenderness or redness Neurological- denies acute dysarthria, dysphagia, change in vision Psychiatry- denies depression or SI or HI Skin- denies acute rash or purpura Objective vital signs Vital Sign Date Time Temp Pulse Resp B/P (MAP) Pulse Ox O2 Delivery O2 Flow Rate FiO2 06/16/24 17:53 71 19 115/75 (88) 98 06/16/24 08:00 98.4 98.4 06/16/24 08:00 Room Air* 0 21 Total Intake and Output 06/15/24 06/15/24 06/16/24 15:00 23:00 07:00 Intake Total 100 ml Balance 100 ml medications Current Medications Medications Dose Ordered Sig/Yazan Route Start Time Stop Time Status Last Admin Dose Admin Sodium Chloride 1,000 ml @ 120 mls/hr Q8H20M IV 06/16/24 04:15 06/16/24 04:59 120 MLS/HR Acetaminophen 325 mg Q4HP PRN PO 06/16/24 04:15 06/16/24 08:02 325 MG Acetaminophen/ Hydrocodone Bitart 1 tab Q4HP PRN PO 06/16/24 04:15 06/16/24 06:24 1 TAB Ondansetron HCl 4 mg Q4HP PRN IV 06/16/24 04:15 06/16/24 09:16 4 MG Enoxaparin Sodium 40 mg DAILY SC 06/16/24 10:00 Nitroglycerin 0.4 mg Q5MINP PRN SL 06/16/24 04:15 Morphine Sulfate 2 mg Q30M PRN IV 06/16/24 04:15 Ceftriaxone Sodium 50 ml @ 100 mls/hr DAILY@09 IV 06/16/24 05:00 06/16/24 05:11 100 MLS/HR Pantoprazole Sodium 40 mg DAILY IV 06/16/24 10:00 06/16/24 10:06 40 MG Lorazepam 0.5 mg PRN PRN IV 06/16/24 11:45 Hydromorphone HCl 0.5 mg Q4HPRN PRN IV 06/16/24 14:45 06/16/24 17:52 0.5 MG Gabapentin 300 mg BID PO 06/16/24 16:00 06/16/24 16:30 300 MG Examination General examination- awake, alert, oriented, cooperative. HEENT- PEERLA, no acute nasal discharge Cardiovascular- S1-S2 audible, rate and rhythm regular, no murmur Respiratory- CTAB, no wheeze or rhonchi Gastrointestinal-right upper quadrant tenderness, bowel sound+. Nondistended Musculoskeletal-no acute joint swelling or tenderness or redness# Lower extremity- right thigh tender to touch, no redness or swelling Neurological- cranial nerves intact, no acute dysarthria or dysphagia Psychiatry- denies depression or SI or HI Skin- no acute rash or purpura renal system-right renal angle tenderness laboratory and microbiology Laboratory Tests 06/16/24 04:50 Test 06/16/24 04:50 Range/Units Serum Glucose 90 74-106 mg/dL Problem List/Assessment/Plan Problem List/Assessment/Plan Right flank pain due to suspected acute pyelonephritis -right renal angle tenderness -urinalysis positive for leukocyte esterase 3+, uterine bacteria 32 Leukocytosis, WBC 13.7, history of fever -pending urine CS -continue ceftriaxone 1 g IV daily -continue normal saline 120 mL/hour -continue pain medication as ordered # suspected acute pyelonephritis of right kidney -right renal angle tenderness Leukocytosis, WBC 13.7, history of fever -urinalysis positive for leukocyte esterase 3+, uterine bacteria 32 -pending urine CS -continue ceftriaxone 1 g IV daily -continue normal saline 120 mL/hour -continue pain medication as ordered # anxiety -continue lorazepam p.r.n. as ordered # substance abuse -patient got fentanyl at the ER last night and that is why UDS was positive for fentanyl -patient tested positive for cannabinoids -was counseled about the effect of substance abuse on health # obesity, BMI 29.3 -patient was counseled about healthy diet, weight reduction, low-fat diet, physical activity # incidental finding of 5 mm left lower lobe pulmonary nodule. -outpatient follow up #4.4 cm right lower pole benign-appearing renal sinus cyst. -outpatient follow up Goals of care/advance care planning; FULL CODE; discussed with the patient Diet full liquid PUD prophylaxis: Pantoprazole DVT prophylaxis: Lovenox Plan discussed with Dr. Villasenor,,, nursing staff, patient, daughter Total time spent on patient evaluation, chart review, assessment and plan, discussion discussion >25 minutes Plan discussed with: Patient Plan discussed with: Patient, Daughter, Other (RN) My Orders My Orders Orders - RAJIV BOTLON Procedure Category Date Status Time Kidney US 06/16/24 Resulted 09:10 Date of Service: Jun 16, 2024 Billing Provider: NATHAN VILLASENOR MD Common Visit Codes: [id number] INP/OBS CARE(HIGH) Secondary Visit Codes: [id number] CARE PLAN 30 MINUTES RAJIV BOLTON Jun 16, 2024 18:08 NATHAN VILLASENOR MD Jun 16, 2024 20:56
[2024-06-17 04:37] LABS: Basophils # (auto) 0.1 10 ^3/uL (0-0.2); Basophils % (auto) 0.8 % (0.0-2.0); Eosinophils # (auto) 0.2 10 ^3/uL (0-0.8); Eosinophils % (auto) 2.4 % (0.0-7.0); Hematocrit 44.6 % (36.0-46.0); Hemoglobin 15.6 g/dL (12.2-16.2); Lymphocytes # (auto) 1.4 10 ^3/uL (0.4-5.4); Lymphocytes % (auto) 14.9 % (10.0-50.0); Mean Corpuscular Hemoglobin 32.9 pg (28.0-32.0); Mean Corpuscular Hgb Conc. 34.9 g/dL (32.0-36.0); Mean Corpuscular Volume 94.3 fL (80.0-100.0); Monocytes # (auto) 1.5 10 ^3/uL (0-1.3); Monocytes % (auto) 16.5 % (0.0-12.0); Neutrophils # (auto) 5.9 10 ^3/uL (1.6-8.6); Neutrophils % (auto) 65.4 % (37.0-80.0); Nucleated Red Blood Cells % 0.1 %; Platelet Count (auto) 223 10^3/uL (140-450); Red Blood Cells 4.73 10^6/uL (4.0-5.20); Red Cell Distribution Width 13.1 % (11.8-14.3); White Blood Cell 9.1 10^3/uL (4.4-10.8)
[2024-06-17 04:42] LABS: Alanine Aminotransferase 21 U/L (7-40); Albumin 3.9 g/dL (3.2-4.8); Alkaline Phosphatase 55 U/L (46-116); Anion Gap 9 (5-15); Aspartate Aminotransferase 18 U/L (13-40); BUN/Creatinine Ratio 11.6 (10.0-20.0); Blood Urea Nitrogen 8 mg/dL (9-23); Calcium 9.2 mg/dL (8.7-10.4); Carbon Dioxide 20 mmol/L (20-31); Chloride 110 mmol/L (98-107); Glucose 79 mg/dL (74-106); Potassium 3.7 mmol/L (3.5-5.1); Sodium 139 mmol/L (136-145)
[2024-06-17 04:43] LABS: Bilirubin, Total 0.9 mg/dL (0.2-1.0); Total Protein 6.2 g/dL (5.7-8.2)
[2024-06-17 07:20] VITALS: PULSE 88; RESP 16; O2SAT 98
--- NOTE | 2024-06-17 10:38 | DVH ---
EXAM: MRI LUMBAR SPINE WO CONTRAST HISTORY: right lower back pain ext to right posterior thigh COMPARISON: Renal ultrasound an abdominal CT scan dated 06/16/2024 TECHNIQUE: MRI was performed utilizing multiple appropriate imaging planes and pulse sequences. FINDINGS: For the purposes of this report, the last square-shaped vertebra is considered L5. Prior to any surg milka, correlation with lumbar spine radiographs should be done. VERTEBRAE: No significant compression deformity is noted. No suspicious lesion is seen. SPINAL CORD: Terminates at the L1 level. No evidence of cord edema or myelomalacia within the parti ally visualized conus medullaris. PARASPINAL SOFT TISSUES: Unremarkable. INTERVERTEBRAL DISCS: T12-L1: No disc herniation, central canal stenosis or neural foramina narrowing. The posterior facet s and ligamentum flavum are unremarkable. L1-L2: No disc herniation, central canal stenosis or neural foramina narrowing. The posterior facets and ligamentum flavum are unremarkable. L2-L3: Mild broad-based posterior disc bulge, mild bilateral posterior facet ligamentum flavum hyper trophy without significant central canal or neural foramina stenosis. L3-L4: Mild broad-based posterior disc bulge, mild bilateral posterior facet and ligamenta flava hy pertrophy with resultant mild central canal stenosis and mild bilateral neural foramina stenosis with out definite nerve impingement. L4-L5: Mild broad-based posterior disc bulge, mild bilateral posterior facet and ligamenta flava hy pertrophy with resultant mild central canal stenosis and mild bilateral neural foramina stenosis with out definite nerve impingement. L5-S1: Mild broad-based posterior disc bulge, mild bilateral posterior facet and ligamenta flava hyp ertrophy with resultant mild central canal stenosis and mild bilateral neural foramina stenosis witho ut definite nerve impingement. OTHER: There is fullness of the bilateral renal collecting systems may represent hydronephrosis /or parapelvic cysts. These are better evaluated in the recent renal ultrasound and CT scan. Please refer to the corresponding reports. IMPRESSION: Mild multilevel degenerative disc disease and posterior facet arthropathy without significant central canal stenosis, neural foramina stenosis or nerve impingement.
[2024-06-17 11:44] VITALS: BP 112/64; PULSE 82; RESP 18; RESP 19; TEMP 98.5; O2SAT 98
--- NOTE | 2024-06-17 12:37 | DVHPNRES ---
Progress Note Date Seen: Jun 17, 2024 Resident Creating Document: RAJIV BOLTON RESIDENT Medical Necessity Reason Pt with a Central, PICC or Fol: No Subjective Review of Systems Patient is 64 years old female with no significant past medical history came with a complaint of right lower back pain started 8-9 days ago. As per patient pain developed gradually, 10/10, sharp in nature, radiating to the right thigh, no aggravating factor, some relief with pain medication. Patient also complained of nausea and vomiting which was mainly food and water but no blood. Patient also reported having fever 101F at home. Patient also endorsed constipation for which she took laxatives. Patient denied any chest pain, short of breath, acute joint pain or swelling, headache, vertigo. With the symptom patient went to [facility] and as per patient patient was told she has gallbladder sludge. Recent lab workup revealed leukocytosis, WBC 13.7, urinalysis revealed leukocyte esterase 3+, WBC 32, UDS was positive for fentanyl and cannabinoids. CT abdomen and pelvis with contrast revealed- Bilateral hydronephrosis / Parapelvic cyst. Suggest correlation with CT urography. Bilateral renal calculi cannot be commented upon due to renal excretion of contrast. Incidentally detected 33 mm right renal [place] 1 simple cortical cyst. No follow-up is recommended as incidentally detected renal lesions are likely benign.Solid nodule, measuring 5 mm is seen in the left lower lobe in subpleural location, image 5, series 3. Subsegmental atelectasis is seen in the left lower lobe.An enhancing lesion seen in the right lobe of liver suggestive of a haemangioma or hepatic adenoma. CT scan of the abdomen and pelvis without contrast revealed-Punctate bilateral nonobstructing nephrolithiasis. Bilateral residual contrast in the collecting systems. No hydronephrosis in either kidney. Bilateral parapelvic cysts. Right cortical renal cyst. Normal appearance of the urinary bladder without mass or filling defect. 5 mm left lower lobe pulmonary nodule. Follow-up according to Fleischner recommendations recommended. Ultrasound of the kidney revealed- Left renal pelviectasis. There is no sonographic evidence of nephrolithiasis. 4.4 cm right lower pole benign- appearing renal sinus cyst. CXR no Acute cardiopulmonary disease PMH-nonsignificant PSH- tubal ligation Allergy- codeine, penicillin Personal History/ Social History- ex-smoker, social alcoholic, use weeds Patient was seen today at the bedside. Patient complained of right flank pain and rash in the right groin and right thigh Cardiovascular- deny acute chest pain or shortness of breath or cough or palpitation Respiratory- denies cough or short of breath or wheezing Gastrointestinal- denies any rectal bleeding, nausea or vomiting Musculoskeletal-denies acute joint swelling or tenderness or redness Neurological- denies acute dysarthria, dysphagia, change in vision Psychiatry- denies depression or SI or HI Seen today for clinical evaluation. Labs and chart reviewed. Patient of ongoing pain in the right flank resume. Patient also reported rash of the right inguinal and right thigh. Patient to have a vesicular rash on the right inguinal region of the right side of the reason around the vagina and also vesicular rash in the right thigh scattered select herpes zoster. No rash was noted on the high yesterday on 06/16/2024 neither patient complained about having any rash around the vaginal area. Patient was also seen by urologist, recommended reviewed and appreciated. Objective vital signs Vital Sign Date Time Temp Pulse Resp B/P (MAP) Pulse Ox O2 Delivery O2 Flow Rate FiO2 06/17/24 11:44 82 18 98 Room Air* 0 21 06/17/24 11:44 98.5 112/64 (80) 98.5 Total Intake and Output 06/16/24 06/16/24 06/17/24 15:00 23:00 07:00 Intake Total 900 ml 1480 ml Balance 900 ml 1480 ml medications Current Medications Medications Dose Ordered Sig/Yazan Route Start Time Stop Time Status Last Admin Dose Admin Sodium Chloride 1,000 ml @ 120 mls/hr Q8H20M IV 06/16/24 04:15 06/17/24 02:14 120 MLS/HR Acetaminophen 325 mg Q4HP PRN PO 06/16/24 04:15 06/16/24 08:02 325 MG Acetaminophen/ Hydrocodone Bitart 1 tab Q4HP PRN PO 06/16/24 04:15 06/17/24 11:08 1 TAB Ondansetron HCl 4 mg Q4HP PRN IV 06/16/24 04:15 06/17/24 09:21 4 MG Enoxaparin Sodium 40 mg DAILY SC 06/16/24 10:00 Nitroglycerin 0.4 mg Q5MINP PRN SL 06/16/24 04:15 Morphine Sulfate 2 mg Q30M PRN IV 06/16/24 04:15 Ceftriaxone Sodium 50 ml @ 100 mls/hr DAILY@09 IV 06/16/24 05:00 06/17/24 09:19 100 MLS/HR Pantoprazole Sodium 40 mg DAILY IV 06/16/24 10:00 06/17/24 10:33 40 MG Lorazepam 0.5 mg PRN PRN IV 06/16/24 11:45 Hydromorphone HCl 0.5 mg Q4HPRN PRN IV 06/16/24 14:45 06/17/24 09:21 0.5 MG Gabapentin 300 mg BID PO 06/16/24 16:00 06/17/24 10:36 300 MG Acyclovir 800 mg 5XD PO 06/17/24 14:00 UNV Prednisone 40 mg DAILY PO 06/18/24 10:00 UNV Examination General examination- awake, alert, oriented, cooperative. HEENT- PEERLA, no acute nasal discharge Cardiovascular- S1-S2 audible, rate and rhythm regular, no murmur Respiratory- CTAB, no wheeze or rhonchi Gastrointestinal-right upper quadrant tenderness, bowel sound+. Nondistended Musculoskeletal-no acute joint swelling or tenderness or redness# Lower extremity- right thigh tender to touch, no redness or swelling Neurological- cranial nerves intact, no acute dysarthria or dysphagia Psychiatry- denies depression or SI or HI Skin-vesicular rash over the right groin area and on the right thigh laboratory and microbiology Laboratory Tests 06/17/24 04:05 Test 06/17/24 04:05 Range/Units Serum Glucose 79 74-106 mg/dL Problem List/Assessment/Plan Problem List/Assessment/Plan # possible disseminated herpes zoster of the right inguinal region and right thigh -continue acyclovir IV as per pharmacy protocol -prednisolone 40 mg q.d. q.d.. -continue pain medication as prescribed #Right flank pain due to suspected acute pyelonephritis -right renal angle tenderness -urinalysis positive for leukocyte esterase 3+, uterine bacteria 32 Leukocytosis, WBC 13.7, now resolved history of fever, now afebrile -pending urine CS -continue ceftriaxone 1 g IV daily -continue normal saline 120 mL/hour -continue pain medication as ordered # suspected acute pyelonephritis of right kidney -right renal angle tenderness -Leukocytosis, WBC 13.7, now resolved history of fever, now afebrile -urinalysis positive for leukocyte esterase 3+, uterine bacteria 32 -pending urine CS -continue ceftriaxone 1 g IV daily -continue normal saline 120 mL/hour -continue pain medication as ordered # anxiety -continue lorazepam p.r.n. as ordered # substance abuse -patient got fentanyl at the ER last night and that may explain why UDS was positive for fentanyl -patient tested positive for cannabinoids -was counseled about the effect of substance abuse on health # obesity, BMI 29.3 -patient was counseled about healthy diet, weight reduction, low-fat diet, physical activity # incidental finding of 5 mm left lower lobe pulmonary nodule. -outpatient follow up #4.4 cm right lower pole benign-appearing renal sinus cyst. -outpatient follow up Goals of care/advance care planning; FULL CODE; discussed with the patient Diet full liquid PUD prophylaxis: Pantoprazole DVT prophylaxis: Lovenox Plan discussed with Dr. Gold,, nursing staff, patient, daughter Total time spent on patient evaluation, chart review, assessment and plan, discussion discussion >25 minutes Plan discussed with: Patient Plan discussed with: Patient, Daughter, Other (RN) My Orders My Orders Orders - RAJIV BOLTON Procedure Category Date Status Time Communication Order ORDERS 06/16/24 Transmitted 18:09 Regular Diet DIET 06/17/24 Transmitted Breakfast Date of Service: Jun 17, 2024 Billing Provider: ZORAIDA GOLD MD Common Visit Codes: [id number] INP/OBS CARE(HIGH) RAJIV BOLTON Jun 17, 2024 12:37 ZORAIDA GOLD MD Jun 17, 2024 22:30
[2024-06-17 13:26] VITALS: BP 125/85; PULSE 95; RESP 16; TEMP 98.3; O2SAT 98
[2024-06-17] MEDS: ACYCLOVIR 400 MG TAB PO SCH (13:49)
[2024-06-17 17:00] VITALS: BP 122/77; PULSE 98; RESP 16; TEMP 98.3; O2SAT 95
[2024-06-17] MEDS ORDERED: ACYCLOVIR 10MG/KG Q8HR PER RX 0 ML IV SCH (17:45)
[2024-06-17] MEDS: SODIUM CHLORIDE 0.9% 1,000 ML IV SCH (18:30)
[2024-06-17 20:00] VITALS: PULSE 87; RESP 18; O2SAT 97
[2024-06-17] MEDS: OXYCODONE W/ ACETAMINOPHEN 5/325MG TABLET PO PRN (20:53)
[2024-06-17 21:00] VITALS: BP 127/66; PULSE 95; RESP 18; TEMP 98; O2SAT 99
[2024-06-17] MEDS: ACYCLOVIR SOD 50MG/ML 750 MG in SODIUM CHL 0.9% 250 ML IV SCH (22:44)
[2024-06-18] VITALS (8 sets, daily range): BP systolic 115–133; BP diastolic 53–85; PULSE 77–104; RESP 16–20; TEMP 98.3–99.5; O2SAT 94–98
[2024-06-18 07:16] LABS: Basophils # (auto) 0 10 ^3/uL (0-0.2); Basophils % (auto) 0.7 % (0.0-2.0); Eosinophils # (auto) 0.1 10 ^3/uL (0-0.8); Eosinophils % (auto) 1.2 % (0.0-7.0); Hemoglobin 13.3 g/dL (12.2-16.2); Lymphocytes # (auto) 0.9 10 ^3/uL (0.4-5.4); Lymphocytes % (auto) 17.4 % (10.0-50.0); Mean Corpuscular Hgb Conc. 34.2 g/dL (32.0-36.0); Mean Corpuscular Volume 93.7 fL (80.0-100.0); Monocytes # (auto) 0.7 10 ^3/uL (0-1.3); Monocytes % (auto) 14.7 % (0.0-12.0); Neutrophils # (auto) 3.3 10 ^3/uL (1.6-8.6); Platelet Count (auto) 172 10^3/uL (140-450); Red Blood Cells 4.16 10^6/uL (4.0-5.20); Red Cell Distribution Width 13.1 % (11.8-14.3)
[2024-06-18 07:33] LABS: Anion Gap 7 (5-15); Carbon Dioxide 22 mmol/L (20-31); Chloride 109 mmol/L (98-107); Potassium 3.6 mmol/L (3.5-5.1); Sodium 138 mmol/L (136-145)
[2024-06-18 07:34] LABS: Calcium 8.6 mg/dL (8.7-10.4)
[2024-06-18 07:39] LABS: Glucose 98 mg/dL (74-106)
[2024-06-18 07:40] LABS: Blood Urea Nitrogen 5 mg/dL (9-23)
[2024-06-18] MEDS: predniSONE 20 MG TAB PO SCH (09:46)
--- NOTE | 2024-06-18 12:06 | DVHPNRES ---
Progress Note Date Seen: Jun 18, 2024 Resident Creating Document: DREW HENRY RESIDENT Has the PT tested + for MRSA If YES, has PT been informed?: No Medical Necessity Reason Pt with a Central, PICC or Fol: No Subjective Review of Systems This is a 64 years old female with no significant past medical history came with a complaint of right lower back pain started 8-9 days ago. As per patient pain developed gradually, 10/10, sharp in nature, radiating to the right thigh, no aggravating factor, some relief with pain medication. Patient also complained of nausea and vomiting which was mainly food and water but no blood. Patient also reported having fever 101F at home. Patient also endorsed constipation for which she took laxatives. Patient denied any chest pain, short of breath, acute joint pain or swelling, headache, vertigo. With the symptom patient went to [facility] and as per patient patient was told she has gallbladder sludge. Recent lab workup revealed leukocytosis, WBC 13.7, urinalysis revealed leukocyte esterase 3+, WBC 32, UDS was positive for fentanyl and cannabinoids. CT abdomen and pelvis with contrast revealed- Bilateral hydronephrosis / Parapelvic cyst. Suggest correlation with CT urography. Bilateral renal calculi cannot be commented upon due to renal excretion of contrast. Incidentally detected 33 mm right renal [place] 1 simple cortical cyst. No follow-up is recommended as incidentally detected renal lesions are likely benign.Solid nodule, measuring 5 mm is seen in the left lower lobe in subpleural location, image 5, series 3. Subsegmental atelectasis is seen in the left lower lobe.An enhancing lesion seen in the right lobe of liver suggestive of a haemangioma or hepatic adenoma. CT scan of the abdomen and pelvis without contrast revealed-Punctate bilateral nonobstructing nephrolithiasis. Bilateral residual contrast in the collecting systems. No hydronephrosis in either kidney. Bilateral parapelvic cysts. Right cortical renal cyst. Normal appearance of the urinary bladder without mass or filling defect. 5 mm left lower lobe pulmonary nodule. Follow-up according to Fleischner recommendations recommended. Ultrasound of the kidney revealed- Left renal pelviectasis. There is no sonographic evidence of nephrolithiasis. 4.4 cm right lower pole benign-appearing renal sinus cyst. CXR no Acute cardiopulmonary disease. Take next day after admission, the patient developed a vesicular rash compatible with herpes zoster. The rash appeared in the right thigh extending to the pubic area right buttock and right lower back. Compromise in multiple dermatomes. We decided to start the patient on IV acyclovir for possible disseminated herpes zoster. Further questioning the patient admitted to be taking prednisone 40 mg for approximately 10 days. Patient seen and examined at bedside. Today, on my physical examination the rash as extended through all the right thigh until 1 cm above the right knee. The rash also has become more reddish in color and vesicles are still intact. Patient reports that pain is a little better control compared to admission but still painful. Will stop prednisone ans start methylprednisolone 60mg BID. Will also start Vancomycin. Continue acyclovir IV, gabapentin and Percocet for pain modulation and IV ceftriaxone in the setting of possible UTI. ROS Constitutional: Denies weight loss, fever and chills. HEENT: Denies changes in vision and hearing. Respiratory: Denies shortness of breath and cough Cardiovascular: Denies chest discomfort or palpitations GI: Denies abdominal pain, nausea, vomiting and diarrhea. : Denies dysuria and urinary frequency. Musculoskeletal: Severe pain in the right thigh, right buttock, pubis area and right lower back were the rash is present. Denies myalgias and joint pain Skin: Denies rash and pruritus. Neurological: Denies dizziness, headache, vision or hearing problems Objective vital signs Vital Sign Date Time Temp Pulse Resp B/P (MAP) Pulse Ox O2 Delivery O2 Flow Rate FiO2 06/18/24 09:41 86 16 130/76 06/18/24 09:00 99.5 96 99.5 06/18/24 08:00 Room Air* 0 21 Total Intake and Output 06/17/24 06/17/24 06/18/24 15:00 23:00 07:00 Intake Total 50 ml 625 ml 1230 ml Balance 50 ml 625 ml 1230 ml medications Current Medications Medications Dose Ordered Sig/Yazan Route Start Time Stop Time Status Last Admin Dose Admin Acetaminophen 325 mg Q4HP PRN PO 06/16/24 04:15 06/16/24 08:02 325 MG Ondansetron HCl 4 mg Q4HP PRN IV 06/16/24 04:15 06/18/24 04:14 4 MG Enoxaparin Sodium 40 mg DAILY SC 06/16/24 10:00 Nitroglycerin 0.4 mg Q5MINP PRN SL 06/16/24 04:15 Morphine Sulfate 2 mg Q30M PRN IV 06/16/24 04:15 Ceftriaxone Sodium 50 ml @ 100 mls/hr DAILY@09 IV 06/16/24 05:00 06/18/24 09:45 100 MLS/HR Pantoprazole Sodium 40 mg DAILY IV 06/16/24 10:00 06/18/24 09:44 40 MG Lorazepam 0.5 mg PRN PRN IV 06/16/24 11:45 Hydromorphone HCl 0.5 mg Q4HPRN PRN IV 06/16/24 14:45 06/18/24 09:41 0.5 MG Gabapentin 300 mg BID PO 06/16/24 16:00 06/18/24 09:46 300 MG Prednisone 40 mg DAILY PO 06/18/24 10:00 06/18/24 09:46 40 MG Acyclovir Sodium 0 ml @ 0 mls/hr PER PHARMACY IV 06/17/24 17:45 Oxycodone/ Acetaminophen 1 tab Q4HP PRN PO 06/17/24 18:30 06/18/24 07:27 1 TAB Acyclovir Sodium 750 mg/Sodium Chloride 265 ml @ 265 mls/hr Q8HR IV 06/17/24 22:00 06/18/24 05:29 265 MLS/HR Examination Physical Examination General: Patient alert and oriented in person, place and time. Patient following commands. HEENT: Normocephalic, atraumatic, moist mucous membranes Respiratory/pulmonary: Clear lungs bilaterally, no associated crackles or wheezes. Cardiovascular: Normal heart sounds S1 and S2 with no associated murmurs Abdomen: Abdomen nondistended, there is no pain to palpation in any of the abdominal quadrants, no palpable masses. Extremities: There is no peripheral edema present at the lower extremities. Peripheral Pulses: 3+ Radial (R). 3+ Radial (L). 3+ Dorsalis pedis (R). 3+ Dorsalis pedis(L) Skin: There is an erythematous rash with vesicles crusted together in the upper right thigh, pubic region, right buttock and right lower back. there is no sacral edema present at this time. Neurological: Intact cranial nerves with no focal neurologic deficits laboratory and microbiology Laboratory Tests 06/18/24 06:59 Test 06/18/24 06:59 Range/Units Serum Glucose 98 74-106 mg/dL Microbiology Date/Time Source Procedure Growth Status 06/16/24 01:21 Voided Urine Urine Culture - Preliminary Resulted Problem List/Assessment/Plan Problem List/Assessment/Plan Assessment/Plan 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 -patient evaluated at bedside, rash has extended to the whole right thigh and to the right buttock. -continue acyclovir IV as per pharmacy protocol -Discontinue prednisolone 40 mg q.d. q.d.. -Start methylprednisolone 60mg BID -Start vancomycin -continue gabapentin 300 mg b.i.d. -continue Percocet Right flank pain due to suspected acute pyelonephritis -right renal angle tenderness -urinalysis positive for leukocyte esterase 3+, uterine bacteria 32 Leukocytosis, WBC 13.7, now resolved (WBC 5.0) history of fever, now afebrile -urine culture came back showing no growth at this time -continue ceftriaxone 1 g IV daily -Discontinue normal saline, IV fluids at this time -continue pain medication as ordered Suspected acute pyelonephritis of right kidney -right renal angle tenderness -Leukocytosis, WBC 13.7, now resolved (WBC 5.0) history of fever, now afebrile -urinalysis positive for leukocyte esterase 3+, uterine bacteria 32 -urine culture came back showing no growth at this time -continue ceftriaxone 1 g IV daily -Discontinue normal saline, IV fluids at this time -continue pain medication as ordered Anxiety -continue lorazepam p.r.n. as ordered Substance abuse -patient tested positive for cannabinoids -was counseled about the effect of substance abuse on health Obesity, BMI 29.3 -patient was counseled about healthy diet, weight reduction, low-fat diet, physical activity Incidental pulmonary nodule. -CT abd showed a 5 mm left lower lobe, outpatient follow up 4.4 cm right lower pole benign-appearing renal sinus cyst. -outpatient follow up PUD prophylaxis: Pantoprazole DVT prophylaxis: patient refusing lovenox Goals of care discussed with the patient at bedside for > 23min, FULL CODE Plan discussed with Dr. Gold Plan discussed with: Patient My Orders My Orders Orders - DREW HENRY Procedure Category Date Status Time Prednisone Tablet PHA 06/18/24 In Process 10:00 Acyclovir 10mg/Kg PHA 06/17/24 In Process Q8hr Per Rx (Zovirax) 17:45 Oxycodone W/ Acet PHA 06/17/24 In Process 5/325mg Tab (Percocet 18:30 Precautions: Droplet YULISSA 06/17/24 In Process 18:51 Precautions: Airborne YULISSA 06/17/24 In Process 18:51 Acyclovir Sod 50mg/Ml PHA 06/17/24 In Process (Zovirax) 22:00 Date of Service: Jun 18, 2024 Billing Provider: ZORAIDA GOLD MD Common Visit Codes: [id number] INP/OBS CARE(HIGH) DREW HENRY RESIDENT Jun 18, 2024 12:06 ZORAIDA GOLD MD Jun 18, 2024 21:47
[2024-06-18] MEDS: ACYCLOVIR SOD 50MG/ML 600 MG in SODIUM CHL 0.9% 250 ML IV SCH (15:47)
[2024-06-18] MEDS ORDERED: VANCOMYCIN PER PHARMACY 0 MG IV SCH (19:45)
[2024-06-18] MEDS: VANCOMYCIN 1GM/200ML PREMIX 200 ML IV ONE (22:38)
[2024-06-18] MEDS: methylPREDNISolone SOD SUCC 125 MG/2 ML VL IV SCH (22:39)
[2024-06-19] VITALS (7 sets, daily range): BP systolic 123–161; BP diastolic 56–87; PULSE 75–105; RESP 18–21; TEMP 97.7–99.2; O2SAT 96–99
[2024-06-19] MEDS: LORazepam 2MG/ML-1ML VIAL IV PRN (10:11)
[2024-06-19] MEDS: IBUPROFEN 400 MG TAB PO SCH (13:09)
--- NOTE | 2024-06-19 13:37 | DVHPNRES ---
Progress Note Date Seen: Jun 19, 2024 Resident Creating Document: RAJIV BOLTON RESIDENT Has the PT tested + for MRSA If YES, has PT been informed?: No Medical Necessity Reason Pt with a Central, PICC or Fol: No Subjective Review of Systems Patient is 64 years old female with no significant past medical history came with a complaint of right lower back pain started 8-9 days ago. As per patient pain developed gradually, 10/10, sharp in nature, radiating to the right thigh, no aggravating factor, some relief with pain medication. Patient also complained of nausea and vomiting which was mainly food and water but no blood. Patient also reported having fever 101F at home. Patient also endorsed constipation for which she took laxatives. Patient denied any chest pain, short of breath, acute joint pain or swelling, headache, vertigo. With the symptom patient went to [facility] and as per patient patient was told she has gallbladder sludge. Recent lab workup revealed leukocytosis, WBC 13.7, urinalysis revealed leukocyte esterase 3+, WBC 32, UDS was positive for fentanyl and cannabinoids. CT abdomen and pelvis with contrast revealed- Bilateral hydronephrosis / Parapelvic cyst. Suggest correlation with CT urography. Bilateral renal calculi cannot be commented upon due to renal excretion of contrast. Incidentally detected 33 mm right renal [place] 1 simple cortical cyst. No follow-up is recommended as incidentally detected renal lesions are likely benign.Solid nodule, measuring 5 mm is seen in the left lower lobe in subpleural location, image 5, series 3. Subsegmental atelectasis is seen in the left lower lobe.An enhancing lesion seen in the right lobe of liver suggestive of a haemangioma or hepatic adenoma. CT scan of the abdomen and pelvis without contrast revealed-Punctate bilateral nonobstructing nephrolithiasis. Bilateral residual contrast in the collecting systems. No hydronephrosis in either kidney. Bilateral parapelvic cysts. Right cortical renal cyst. Normal appearance of the urinary bladder without mass or filling defect. 5 mm left lower lobe pulmonary nodule. Follow-up according to Fleischner recommendations recommended. Ultrasound of the kidney revealed- Left renal pelviectasis. There is no sonographic evidence of nephrolithiasis. 4.4 cm right lower pole benign- appearing renal sinus cyst. CXR no Acute cardiopulmonary disease. PMH-nonsignificant PSH- tubal ligation Allergy- codeine, penicillin Personal History/ Social History- ex-smoker, social alcoholic, use weeds Patient was seen today at the bedside. Patient complained of right flank pain and rash in the right groin and right thigh Cardiovascular- deny acute chest pain or shortness of breath or cough or palpitation Respiratory- denies cough or short of breath or wheezing Gastrointestinal- denies any rectal bleeding, nausea or vomiting Musculoskeletal-denies acute joint swelling or tenderness or redness Neurological- denies acute dysarthria, dysphagia, change in vision Psychiatry- denies depression or SI or HI Patient was seen today for clinical evaluation. Labs and chart reviewed. Patients YONG report pending. Patient's rash on the right inguinal region, around right side of the vagina, right thigh anterior and posterior and right lower back still present but looks like a little bit dry up. Patient's rash spreading up to right above right knee. There are some scattered rash on the left upper chest. Patient complaining of on going pain. Patient is on pain medications Percocet prn, Dilaudid prn. Ordered ibuprofen 600 mg q.6h p.r.n. steatosis resolved. Today potassium was 3.4, . As per lab it will take 6 days to get YONG report. Objective vital signs Vital Sign Date Time Temp Pulse Resp B/P (MAP) Pulse Ox O2 Delivery O2 Flow Rate FiO2 06/19/24 09:00 98.4 88 21 152/71 (98) 99 98.4 06/18/24 20:00 Room Air* 0 21 Total Intake and Output 06/18/24 06/18/24 06/19/24 15:00 23:00 07:00 Intake Total 50 ml 500 ml 800 ml Output Total 800 ml Balance 50 ml -300 ml 800 ml medications Current Medications Medications Dose Ordered Sig/Yazan Route Start Time Stop Time Status Last Admin Dose Admin Acetaminophen 325 mg Q4HP PRN PO 06/16/24 04:15 06/16/24 08:02 325 MG Ondansetron HCl 4 mg Q4HP PRN IV 06/16/24 04:15 06/18/24 04:14 4 MG Enoxaparin Sodium 40 mg DAILY SC 06/16/24 10:00 06/19/24 10:07 40 MG Nitroglycerin 0.4 mg Q5MINP PRN SL 06/16/24 04:15 Ceftriaxone Sodium 50 ml @ 100 mls/hr DAILY@09 IV 10/24/24 05:00 06/19/24 10:06 100 MLS/HR Pantoprazole Sodium 40 mg DAILY IV 06/16/24 10:00 06/19/24 10:06 40 MG Lorazepam 0.5 mg PRN PRN IV 06/16/24 11:45 06/19/24 10:11 0.5 MG Hydromorphone HCl 0.5 mg Q4HPRN PRN IV 06/16/24 14:45 06/19/24 05:04 0.5 MG Gabapentin 300 mg BID PO 06/16/24 16:00 06/19/24 10:07 300 MG Acyclovir Sodium 0 ml @ 0 mls/hr PER PHARMACY IV 06/17/24 17:45 Oxycodone/ Acetaminophen 1 tab Q4HP PRN PO 06/17/24 18:30 06/19/24 13:10 1 TAB Acyclovir Sodium 600 mg/Sodium Chloride 262 ml @ 262 mls/hr Q8HR IV 06/18/24 14:00 06/19/24 05:45 262 MLS/HR Vancomycin HCl 0 ml @ 0 mls/hr UD IV 06/18/24 19:45 Methylprednisolone Sodium Succinate 60 mg BID IV 06/18/24 22:00 06/19/24 10:06 60 MG Ibuprofen 400 mg Q6HP PO 06/19/24 12:00 06/19/24 13:09 400 MG Vancomycin HCl 200 ml @ 200 mls/hr Q18H IV 06/19/24 17:00 laboratory and microbiology Laboratory Tests 06/18/24 06:59 Test 06/18/24 06:59 Range/Units Serum Glucose 98 74-106 mg/dL Microbiology Date/Time Source Procedure Growth Status 06/16/24 01:21 Voided Urine Urine Culture - Final Complete Problem List/Assessment/Plan Problem List/Assessment/Plan Assessment/Plan 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 -patient evaluated at bedside, rash has extended to the whole right thigh and to the right buttock. -continue acyclovir IV as per pharmacy protocol -on 06/18/24 Discontinued prednisolone 40 mg q.d. q.d.. -on 06/19/24 Started methylprednisolone 60mg BID -Start vancomycin om 06/18/24 -continue gabapentin 300 mg b.i.d. -continue Percocet , Dilaudid p.r.n., -ordered ibuprofen p.r.n. as prescribed Right flank pain due to suspected acute pyelonephritis -right renal angle tenderness -urinalysis positive for leukocyte esterase 3+, uterine bacteria 32 Leukocytosis, WBC 13.7, now resolved (WBC 5.0) history of fever, now afebrile -urine culture came back showing no growth at this time -continue ceftriaxone 1 g IV daily -Discontinued normal saline, IV fluids on 06/18/24 -continue pain medication as ordered Suspected acute pyelonephritis of right kidney -right renal angle tenderness -Leukocytosis, WBC 13.7, now resolved (WBC 5.0) history of fever, now afebrile -urinalysis positive for leukocyte esterase 3+, uterine bacteria 32 -urine culture came back showing no growth at this time -continue ceftriaxone 1 g IV daily --Discontinued normal saline, IV fluids on 06/18/24 -continue pain medication as ordered # hypokalemia-replenished -potassium 3.4, no acute symptom Anxiety -continue lorazepam p.r.n. as ordered Substance abuse -patient tested positive for cannabinoids -was counseled about the effect of substance abuse on health Obesity, BMI 29.3 -patient was counseled about healthy diet, weight reduction, low-fat diet, physical activity Incidental pulmonary nodule. -CT abd showed a 5 mm left lower lobe, outpatient follow up 4.4 cm right lower pole benign-appearing renal sinus cyst. -outpatient follow up PUD prophylaxis: Pantoprazole DVT prophylaxis: patient refusing lovenox Goals of care discussed with the patient at bedside for > 23min, FULL CODE Plan discussed with Dr. Gold Plan discussed with: Patient Plan discussed with: Patient, Daughter, Other (RN) My Orders My Orders Orders - RAJIV BOLTON RESIDENT Procedure Category Date Status Time Ibuprofen Tablet PHA 06/19/24 In Process (Motrin Tablet) 12:00 Complete Blood Count LAB 06/19/24 Logged 13:07 Basic Metabolic Panel LAB 06/19/24 Logged 13:07 Dietary Evaluation Review Comments: 1. Continue current diet 2. Consider Ensure BID to improve PO intake to provide 30g pro,700kcal Expected Outcomes/Goals: 1. Pt will consume >75% of estimated needs witin 3-5 days Date of Service: Jun 19, 2024 Billing Provider: ZORAIDA GOLD MD Common Visit Codes: 20672-[id number] INP/OBS CARE(HIGH) RAJIV BOLTON RESIDENT Jun 19, 2024 13:37 ZORAIDA GODL MD Jun 20, 2024 21:29
[2024-06-19] MEDS ORDERED: IBUPROFEN 400 MG TAB PO PRN (13:45)
[2024-06-19 14:10] LABS: Basophils # (auto) 0 10 ^3/uL (0-0.2); Basophils % (auto) 0.1 % (0.0-2.0); Eosinophils # (auto) 0 10 ^3/uL (0-0.8); Hematocrit 43.7 % (36.0-46.0); Lymphocytes # (auto) 0.5 10 ^3/uL (0.4-5.4); Lymphocytes % (auto) 8.6 % (10.0-50.0); Mean Corpuscular Hemoglobin 32.1 pg (28.0-32.0); Mean Corpuscular Hgb Conc. 34.4 g/dL (32.0-36.0); Mean Corpuscular Volume 93.3 fL (80.0-100.0); Monocytes # (auto) 0.4 10 ^3/uL (0-1.3); Monocytes % (auto) 6.8 % (0.0-12.0); Neutrophils # (auto) 4.5 10 ^3/uL (1.6-8.6); Neutrophils % (auto) 84.5 % (37.0-80.0); Platelet Count (auto) 195 10^3/uL (140-450); Red Blood Cells 4.68 10^6/uL (4.0-5.20); Red Cell Distribution Width 13.2 % (11.8-14.3); White Blood Cell 5.3 10^3/uL (4.4-10.8)
[2024-06-19 14:20] LABS: Chloride 107 mmol/L (98-107); Potassium 3.4 mmol/L (3.5-5.1); Sodium 138 mmol/L (136-145)
[2024-06-19 14:21] LABS: Anion Gap 10 (5-15); Calcium 9.4 mg/dL (8.7-10.4); Carbon Dioxide 21 mmol/L (20-31)
[2024-06-19 14:26] LABS: BUN/Creatinine Ratio 9.3 (10.0-20.0); Blood Urea Nitrogen 7 mg/dL (9-23); Glucose 176 mg/dL (74-106)
[2024-06-19] MEDS: POTASSIUM CHL 20 Meq TABLET PO STA (17:19)
[2024-06-19] MEDS: VANCOMYCIN 1GM/200ML PREMIX 200 ML IV SCH (17:21)
[2024-06-20] VITALS (7 sets, daily range): BP systolic 108–153; BP diastolic 56–88; PULSE 70–95; RESP 16–20; TEMP 97.6–98.3; O2SAT 93–99
[2024-06-20 06:13] LABS: Basophils # (auto) 0 10 ^3/uL (0-0.2); Basophils % (auto) 0.1 % (0.0-2.0); Eosinophils # (auto) 0 10 ^3/uL (0-0.8); Hematocrit 41.6 % (36.0-46.0); Hemoglobin 14.3 g/dL (12.2-16.2); Lymphocytes % (auto) 14.7 % (10.0-50.0); Mean Corpuscular Hemoglobin 32.2 pg (28.0-32.0); Mean Corpuscular Hgb Conc. 34.4 g/dL (32.0-36.0); Mean Corpuscular Volume 93.7 fL (80.0-100.0); Monocytes # (auto) 0.8 10 ^3/uL (0-1.3); Monocytes % (auto) 10.9 % (0.0-12.0); Neutrophils # (auto) 5.3 10 ^3/uL (1.6-8.6); Neutrophils % (auto) 74.3 % (37.0-80.0); Platelet Count (auto) 211 10^3/uL (140-450); Red Blood Cells 4.43 10^6/uL (4.0-5.20); Red Cell Distribution Width 13.1 % (11.8-14.3); White Blood Cell 7.1 10^3/uL (4.4-10.8)
[2024-06-20 06:23] LABS: Anion Gap 10 (5-15); Carbon Dioxide 23 mmol/L (20-31); Chloride 108 mmol/L (98-107); Potassium 4.1 mmol/L (3.5-5.1); Sodium 141 mmol/L (136-145)
[2024-06-20 06:25] LABS: Calcium 9.4 mg/dL (8.7-10.4)
[2024-06-20 06:29] LABS: BUN/Creatinine Ratio 17.5 (10.0-20.0); Blood Urea Nitrogen 11 mg/dL (9-23); Glucose 131 mg/dL (74-106)
[2024-06-20] MEDS: DOCUSATE SOD 100 MG CAP PO ONE (09:50)
[2024-06-20] MEDS: GABAPENTIN 300 MG CAP PO SCH (09:51)
[2024-06-20] MEDS: LACTULOSE 20Gm/30ML SOLN PO SCH ×2 (09:53→21:50)
--- NOTE | 2024-06-20 10:29 | DVHPNRES ---
Progress Note Date Seen: Jun 20, 2024 Resident Creating Document: RAJIV BOLTON RESIDENT Has the PT tested + for MRSA If YES, has PT been informed?: No Medical Necessity Reason Pt with a Central, PICC or Fol: No Subjective Review of Systems Patient is 64 years old female with no significant past medical history came with a complaint of right lower back pain started 8-9 days ago. As per patient pain developed gradually, 10/10, sharp in nature, radiating to the right thigh, no aggravating factor, some relief with pain medication. Patient also complained of nausea and vomiting which was mainly food and water but no blood. Patient also reported having fever 101F at home. Patient also endorsed constipation for which she took laxatives. Patient denied any chest pain, short of breath, acute joint pain or swelling, headache, vertigo. With the symptom patient went to [facility] and as per patient patient was told she has gallbladder sludge. Recent lab workup revealed leukocytosis, WBC 13.7, urinalysis revealed leukocyte esterase 3+, WBC 32, UDS was positive for fentanyl and cannabinoids. CT abdomen and pelvis with contrast revealed- Bilateral hydronephrosis / Parapelvic cyst. Suggest correlation with CT urography. Bilateral renal calculi cannot be commented upon due to renal excretion of contrast. Incidentally detected 33 mm right renal [place] 1 simple cortical cyst. No follow-up is recommended as incidentally detected renal lesions are likely benign.Solid nodule, measuring 5 mm is seen in the left lower lobe in subpleural location, image 5, series 3. Subsegmental atelectasis is seen in the left lower lobe.An enhancing lesion seen in the right lobe of liver suggestive of a haemangioma or hepatic adenoma. CT scan of the abdomen and pelvis without contrast revealed-Punctate bilateral nonobstructing nephrolithiasis. Bilateral residual contrast in the collecting systems. No hydronephrosis in either kidney. Bilateral parapelvic cysts. Right cortical renal cyst. Normal appearance of the urinary bladder without mass or filling defect. 5 mm left lower lobe pulmonary nodule. Follow-up according to Fleischner recommendations recommended. Ultrasound of the kidney revealed- Left renal pelviectasis. There is no sonographic evidence of nephrolithiasis. 4.4 cm right lower pole benign- appearing renal sinus cyst. CXR no Acute cardiopulmonary disease. PMH-nonsignificant PSH- tubal ligation Allergy- codeine, penicillin Personal History/ Social History- ex-smoker, social alcoholic, use weeds Patient was seen today at the bedside. Patient complained of right flank pain and rash in the right groin and right thigh Cardiovascular- deny acute chest pain or shortness of breath or cough or palpitation Respiratory- denies cough or short of breath or wheezing Gastrointestinal- denies any rectal bleeding, nausea or vomiting Musculoskeletal-denies acute joint swelling or tenderness or redness Neurological- denies acute dysarthria, dysphagia, change in vision Psychiatry- denies depression or SI or HI Patient was seen today for clinical evaluation. Labs and chart reviewed. Patients YONG report pending. Patient's rash on the right inguinal region, around right side of the vagina, right thigh anterior and posterior and right lower back still present but looks like a little bit dry up. Patient's rash spreading up to right above right knee. There are some scattered rash on the left upper chest. Patient complaining of on going pain. Patient is on pain medications Percocet prn, Dilaudid prn. Ordered ibuprofen 600 mg q.6h p.r.n. steatosis resolved. Today potassium was 3.4, . As per lab it will take 6 days to get YONG report. Objective vital signs Vital Sign Date Time Temp Pulse Resp B/P (MAP) Pulse Ox O2 Delivery O2 Flow Rate FiO2 06/20/24 09:52 90 16 122/67 06/20/24 09:12 98.0 99 98.0 06/20/24 08:00 Room Air* 0 N/A Oxymizer Total Intake and Output 06/19/24 06/19/24 06/20/24 15:00 23:00 07:00 Intake Total 1000 ml 262 ml Output Total 500 ml Balance 1000 ml -238 ml medications Current Medications Medications Dose Ordered Sig/Yazan Route Start Time Stop Time Status Last Admin Dose Admin Acetaminophen 325 mg Q4HP PRN PO 06/16/24 04:15 06/16/24 08:02 325 MG Ondansetron HCl 4 mg Q4HP PRN IV 06/16/24 04:15 06/19/24 19:00 4 MG Enoxaparin Sodium 40 mg DAILY SC 06/16/24 10:00 06/20/24 09:53 40 MG Nitroglycerin 0.4 mg Q5MINP PRN SL 06/16/24 04:15 Pantoprazole Sodium 40 mg DAILY IV 06/16/24 10:00 06/20/24 09:51 40 MG Lorazepam 0.5 mg PRN PRN IV 06/16/24 11:45 06/19/24 22:59 0.5 MG Hydromorphone HCl 0.5 mg Q4HPRN PRN IV 06/16/24 14:45 06/20/24 09:52 0.5 MG Acyclovir Sodium 0 ml @ 0 mls/hr PER PHARMACY IV 06/17/24 17:45 Oxycodone/ Acetaminophen 1 tab Q4HP PRN PO 06/17/24 18:30 06/20/24 06:33 1 TAB Acyclovir Sodium 600 mg/Sodium Chloride 262 ml @ 262 mls/hr Q8HR IV 06/18/24 14:00 06/20/24 05:23 262 MLS/HR Vancomycin HCl 0 ml @ 0 mls/hr UD IV 06/18/24 19:45 Methylprednisolone Sodium Succinate 60 mg BID IV 06/18/24 22:00 06/20/24 09:53 60 MG Vancomycin HCl 200 ml @ 200 mls/hr Q18H IV 06/19/24 17:00 06/19/24 17:21 200 MLS/HR Ibuprofen 400 mg Q6HP PRN PO 06/19/24 13:45 Lactulose 30 ml DAILY PO 06/20/24 10:00 06/20/24 09:53 30 ML Gabapentin 300 mg TID PO 06/20/24 09:00 06/20/24 09:51 300 MG Examination General examination- awake, alert, oriented, cooperative. HEENT- PEERLA, no acute nasal discharge Cardiovascular- S1-S2 audible, rate and rhythm regular, no murmur Respiratory- CTAB, no wheeze or rhonchi Gastrointestinal-right upper quadrant tenderness, bowel sound+. Nondistended Musculoskeletal-no acute joint swelling or tenderness or redness# Lower extremity- right thigh tender to touch, no redness or swelling Neurological- cranial nerves intact, no acute dysarthria or dysphagia Psychiatry- denies depression or SI or HI Skin-vesicular rash over the right groin area and on the right thigh laboratory and microbiology Laboratory Tests 06/20/24 05:13 Test 06/20/24 05:13 Range/Units Serum Glucose 131 H 74-106 mg/dL Microbiology Date/Time Source Procedure Growth Status 06/16/24 01:21 Voided Urine Urine Culture - Final Complete Problem List/Assessment/Plan Problem List/Assessment/Plan Assessment/Plan 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 -patient evaluated at bedside, rash has extended to the whole right thigh and to the right buttock. -continue acyclovir IV as per pharmacy protocol -on 06/18/24 Discontinued prednisolone 40 mg q.d. q.d.. -on 06/19/24 Started methylprednisolone 60mg BID -Start vancomycin om 06/18/24 -continue gabapentin 300 mg b.i.d. -continue Percocet , Dilaudid p.r.n., -ordered ibuprofen p.r.n. as prescribed Right flank pain due to suspected acute pyelonephritis -right renal angle tenderness -urinalysis positive for leukocyte esterase 3+, uterine bacteria 32 Leukocytosis, WBC 13.7, now resolved (WBC 5.0) history of fever, now afebrile -urine culture came back showing no growth at this time -continue ceftriaxone 1 g IV daily -Discontinued normal saline, IV fluids on 06/18/24 -continue pain medication as ordered Suspected acute pyelonephritis of right kidney -right renal angle tenderness -Leukocytosis, WBC 13.7, now resolved (WBC 5.0) history of fever, now afebrile -urinalysis positive for leukocyte esterase 3+, uterine bacteria 32 -urine culture came back showing no growth at this time -continue ceftriaxone 1 g IV daily --Discontinued normal saline, IV fluids on 06/18/24 -continue pain medication as ordered # hypokalemia-replenished -potassium 3.4, no acute symptom Anxiety -continue lorazepam p.r.n. as ordered Substance abuse -patient tested positive for cannabinoids -was counseled about the effect of substance abuse on health Obesity, BMI 29.3 -patient was counseled about healthy diet, weight reduction, low-fat diet, physical activity Incidental pulmonary nodule. -CT abd showed a 5 mm left lower lobe, outpatient follow up 4.4 cm right lower pole benign-appearing renal sinus cyst. -outpatient follow up PUD prophylaxis: Pantoprazole DVT prophylaxis: patient refusing lovenox Goals of care discussed with the patient at bedside for > 23min, FULL CODE Plan discussed with Dr. Gold Plan discussed with: Patient Plan discussed with: Patient, Other My Orders My Orders Orders - RAJIV BOLTON Procedure Category Date Status Time Ibuprofen Tablet PHA 06/19/24 In Process (Motrin Tablet) 13:45 Dietary Evaluation Review Comments: 1. Continue current diet 2. Consider Ensure BID to improve PO intake to provide 30g pro,700kcal Expected Outcomes/Goals: 1. Pt will consume >75% of estimated needs witin 3-5 days RAJIV BOLTON RESIDENT Jun 20, 2024 10:29
[2024-06-20] MEDS: OXYCODONE W/ ACETAMINOPHEN 5/325MG TABLET PO PRN (11:46)
--- NOTE | 2024-06-20 13:06 | DVHDSRES ---
Discharge Summary Date of Admission Resident Creating Document: RAJIV BOLTON RESIDENT Jun 16, 2024 at 04:15 Date of Discharge: Jun 20, 2024 Admitting Diagnosis Right flank pain and right thigh pain Labs/Diagnostic Data: Laboratory Results Test 06/20/24 05:13 06/18/24 06:59 06/17/24 18:35 06/17/24 04:05 White Blood Count 7.1 10^3/uL (4.4-10.8) Red Blood Count 4.43 10^6/uL (4.0-5.20) Hemoglobin 14.3 g/dL (12.2-16.2) Hematocrit 41.6 % (36.0-46.0) Mean Corpuscular Volume 93.7 fL (80.0-100.0) Mean Corpuscular Hemoglobin 32.2 pg (28.0-32.0) Mean Corpuscular Hemoglobin Concent 34.4 g/dL (32.0-36.0) Red Cell Distribution Width 13.1 % (11.8-14.3) Platelet Count 211 10^3/uL (140-450) Mean Platelet Volume 8.3 fL (6.9-10.8) Neutrophils (%) (Auto) 74.3 % (37.0-80.0) Lymphocytes (%) (Auto) 14.7 % (10.0-50.0) Monocytes (%) (Auto) 10.9 % (0.0-12.0) Eosinophils (%) (Auto) 0.0 % (0.0-7.0) Basophils (%) (Auto) 0.1 % (0.0-2.0) Neutrophils # (Auto) 5.3 10 ^3/uL (1.6-8.6) Lymphocytes # (Auto) 1.0 10 ^3/uL (0.4-5.4) Monocytes # (Auto) 0.8 10 ^3/uL (0-1.3) Eosinophils # (Auto) 0 10 ^3/uL (0-0.8) Basophils # (Auto) 0 10 ^3/uL (0-0.2) Nucleated Red Blood Cells 0.0 % Sodium Level 141 mmol/L (136-145) Potassium Level 4.1 mmol/L (3.5-5.1) Chloride Level 108 mmol/L (98-107) Carbon Dioxide Level 23 mmol/L (20-31) Anion Gap 10 (5-15) Blood Urea Nitrogen 11 mg/dL (9-23) Creatinine 0.63 mg/dL (0.550-1.02) Glomerular Filtration Rate Calc 98 mL/min (>90) BUN/Creatinine Ratio 17.5 (10.0-20.0) Serum Glucose 131 mg/dL (74-106) Calcium Level 9.4 mg/dL (8.7-10.4) HIV (1&2) Antibody Negative (Negative) Total Bilirubin 0.9 mg/dL (0.2-1.0) Aspartate Amino Transferase (AST) 18 U/L (13-40) Alanine Aminotransferase (ALT) 21 U/L (7-40) Alkaline Phosphatase 55 U/L (46-116) Total Protein 6.2 g/dL (5.7-8.2) Albumin 3.9 g/dL (3.2-4.8) Test 06/16/24 04:50 06/16/24 01:21 06/16/24 00:36 06/15/24 23:42 Hemoglobin A1c 4.8 % A1C (<5.7) Vitamin B12 Level 547 pg/mL (211-911) Vitamin D 25-Hydroxy 37.0 ng/mL (30.0-100) Thyroid Stimulating Hormone (TSH) 0.85 uIU/mL (0.55-4.78) Urine Color Light-yellow (Yellow) Urine Clarity Clear (Clear) Urine pH 5.0 (5.0-9.0) Urine Specific [place] 1.018 (1.001-1.035) Urine Protein Negative (Negative) Urine Ketones 3+ (Negative) Urine Blood 2+ /uL (Negative) Urine Nitrite Negative (Negative) Urine Bilirubin Negative (Negative) Urine Urobilinogen Normal mg/dL (Negative) Urine Leukocyte Esterase 3+ /uL (Negative) Urine RBC 11 /hpf (0 - 4) Urine WBC 32 /hpf (0 - 5) Urine Squamous Epithelial Cells Few /hpf (<5) Urine Bacteria None seen /hpf (None Seen) Urine Mucus Few (None Seen) Urine Glucose Normal mg/dL (Normal) Urine Opiates Screen Neg (NEGATIVE) Urine Fentanyl Screen Pos (NEGATIVE) Urine Barbiturates Screen Neg (NEGATIVE) Urine Phencyclidine Screen Neg (NEGATIVE) Urine Amphetamines Screen Neg (NEGATIVE) Urine Benzodiazepines Screen Neg (NEGATIVE) Urine Cocaine Screen Neg (NEGATIVE) Urine Cannabinoids Screen Pos (NEGATIVE) Troponin I High Sensitivity 7 ng/L (</=34) Lactic Acid Level 0.9 mmol/L (0.4-2.0) Lipase 34 U/L (12-53) Other Laboratory Tests 06/20/24 05:13 Brief Hx & Hospital Course: Patient is 64 years old female with no significant past medical history came with a complaint of right lower back pain started 8-9 days ago. As per patient pain developed gradually, 06/02, sharp in nature, radiating to the right thigh, no aggravating factor, some relief with pain medication. Patient also complained of nausea and vomiting which was mainly food and water but no blood. Patient also reported having fever 101F at home. Patient also endorsed constipation for which she took laxatives. Patient denied any chest pain, short of breath, acute joint pain or swelling, headache, vertigo. With the symptom patient went to [facility] and as per patient patient was told she has gallbladder sludge. Recent lab workup revealed leukocytosis, WBC 13.7, urinalysis revealed leukocyte esterase 3+, WBC 32, UDS was positive for fentanyl and cannabinoids. CT abdomen and pelvis with contrast revealed- Bilateral hydronephrosis / Parapelvic cyst. Suggest correlation with CT urography. Bilateral renal calculi cannot be commented upon due to renal excretion of contrast. Incidentally detected 33 mm right renal [place] 1 simple cortical cyst. No follow-up is recommended as incidentally detected renal lesions are likely benign.Solid nodule, measuring 5 mm is seen in the left lower lobe in subpleural location, image 5, series 3. Subsegmental atelectasis is seen in the left lower lobe.An enhancing lesion seen in the right lobe of liver suggestive of a haemangioma or hepatic adenoma. CT scan of the abdomen and pelvis without contrast revealed-Punctate bilateral nonobstructing nephrolithiasis. Bilateral residual contrast in the collecting systems. No hydronephrosis in either kidney. Bilateral parapelvic cysts. Right cortical renal cyst. Normal appearance of the urinary bladder without mass or filling defect. 5 mm left lower lobe pulmonary nodule. Follow-up according to Fleischner recommendations recommended. Ultrasound of the kidney revealed- Left renal pelviectasis. There is no sonographic evidence of nephrolithiasis. 4.4 cm right lower pole benign- appearing renal sinus cyst. CXR no Acute cardiopulmonary disease. There is no rash noted during admission or on 06/16/2024 neither patient complete about any rash. On Thursday06/17/2024 patient was rash on the right inguinal region including on the right side of the vagina the right thigh, right lower buttock. Distress casually was extending to the right lower back, on the right thigh just the knee. There was some rash scattered on the left upper chest, only few. Patient is being treated with IV acyclovir 600 mg IV Q 8 H, methylprednisolone 60 IV b.i.d., vancomycin 1 g Q 18 hour to prevent secondary bacterial infection, pantoprazole 40 mg IV daily L with other supportive management including pain killer.. Patient's leukocytosis resolved, urine culture negative for any bacterial growth. Patient and her family requested be transferred to [facility]. Patient and her family being transferred to an acute care facility in hemodynamically stable condition. PMH-nonsignificant PSH- tubal ligation Allergy- codeine, penicillin Personal History/ Social History- ex-smoker, social alcoholic, use weeds Patient was seen today at the bedside. Patient pain pain in the right thigh, right flank, right inguinal region Cardiovascular- deny acute chest pain or shortness of breath or cough or palpitation Respiratory- denies cough or short of breath or wheezing Gastrointestinal- denies any rectal bleeding, nausea or vomiting Musculoskeletal-denies acute joint swelling or tenderness or redness Neurological- denies acute dysarthria, dysphagia, change in vision Psychiatry- denies depression or SI or HI General examination- awake, alert, oriented, cooperative. HEENT- PEERLA, no acute nasal discharge Cardiovascular- S1-S2 audible, rate and rhythm regular, no murmur Respiratory- CTAB, no wheeze or rhonchi Gastrointestinal-right upper quadrant tenderness, bowel sound+. Nondistended Musculoskeletal-no acute joint swelling or tenderness or redness# Lower extremity- right thigh tender to touch, no redness or swelling Neurological- cranial nerves intact, no acute dysarthria or dysphagia Psychiatry- denies depression or SI or HIGeneral examination- awake, alert, oriented, cooperative. Skin-vesicular rash over the right groin area and on the right thigh up to above knee, but right lower back, there also scattered lesion on left upper chest Condition at Discharge: Stable Final Diagnosis/Problems List Disseminated herpes zoster on the right inguinal region, right thigh, right buttock. Right flank pain due to suspected acute pyelonephritis Suspected acute pyelonephritis of right kidney hypokalemia-replenished Substance abuse-tested positive for cannabinoids Anxiety Discharge Disposition: Acute Care Facility Discharge Instruct/Medications Diet: Cardiac 2g Na,low cholest Activity: No Restrictions, As Tolerated Follow Up/Referral: Accepting MD Dr. Ferro Medications: See med rec Discharge Statement: "Patient was advised to return to the ER or call 911 if any headaches, dizziness, shortness of breath, chest pain, abdominal pain, bleeding, fevers, or worsening of medical condition. Patient was counseled about treatment plan, medications, possible side effects, patientverbalized understanding. All questions were answered to the best of my ability. This discharge took greater then 30 minutes in planning, reviewing documentation, counseling the patient, and discussing with other team members." ASSESSMENT ASSESSMENT Assessment RLE herpes zoster Date of Service: Jun 20, 2024 Billing Provider: NATHAN SHEPHERD MD Common Visit Codes: 56086-XCJ/OBS DISCH DAY >30min RAJIV BOLTON RESIDENT Jun 20, 2024 13:06 NATHAN SHEPHERD MD Jun 20, 2024 21:13
[2024-06-20] MEDS: IBUPROFEN 600 MG TAB PO SCH (13:19)
[2024-06-20] MEDS: HYDROmorphone HCL 2 MG/ML VL/or syr IV PRN (13:20)
[2024-06-20] MEDS: LORazepam 2MG/ML-1ML VIAL IV PRN (18:36)
[2024-06-20] MEDS: DOCUSATE SOD 100 MG CAP PO SCH (21:50)
[2024-06-20] MEDS: CAPSAICIN 0.025% CREAM 60GM TOP SCH (22:00)
[2024-06-21] VITALS (7 sets, daily range): BP systolic 130–150; BP diastolic 76–87; PULSE 58–82; RESP 18–20; TEMP 97.7–98.1; O2SAT 96–98
[2024-06-21 04:06] LABS: Basophils # (auto) 0 10 ^3/uL (0-0.2); Basophils % (auto) 0.3 % (0.0-2.0); Eosinophils # (auto) 0 10 ^3/uL (0-0.8); Hemoglobin 14.3 g/dL (12.2-16.2); Lymphocytes # (auto) 1.5 10 ^3/uL (0.4-5.4); Lymphocytes % (auto) 14.7 % (10.0-50.0); Monocytes # (auto) 0.8 10 ^3/uL (0-1.3); Monocytes % (auto) 8.1 % (0.0-12.0); Neutrophils # (auto) 7.8 10 ^3/uL (1.6-8.6); Neutrophils % (auto) 76.9 % (37.0-80.0); Platelet Count (auto) 223 10^3/uL (140-450); Red Blood Cells 4.47 10^6/uL (4.0-5.20); Red Cell Distribution Width 13.3 % (11.8-14.3); White Blood Cell 10.1 10^3/uL (4.4-10.8)
--- NOTE | 2024-06-21 11:14 | DVHPNRES ---
Progress Note Date Seen: Jun 21, 2024 Resident Creating Document: RAJIV BOLTON RESIDENT Has the PT tested + for MRSA If YES, has PT been informed?: No Medical Necessity Reason Pt with a Central, PICC or Fol: No Subjective Review of Systems Patient is 64 years old female with no significant past medical history came with a complaint of right lower back pain started 8-9 days ago. As per patient pain developed gradually, 10/10, sharp in nature, radiating to the right thigh, no aggravating factor, some relief with pain medication. Patient also complained of nausea and vomiting which was mainly food and water but no blood. Patient also reported having fever 101F at home. Patient also endorsed constipation for which she took laxatives. Patient denied any chest pain, short of breath, acute joint pain or swelling, headache, vertigo. With the symptom patient went to [facility] and as per patient patient was told she has gallbladder sludge. Recent lab workup revealed leukocytosis, WBC 13.7, urinalysis revealed leukocyte esterase 3+, WBC 32, UDS was positive for fentanyl and cannabinoids. CT abdomen and pelvis with contrast revealed- Bilateral hydronephrosis / Parapelvic cyst. Suggest correlation with CT urography. Bilateral renal calculi cannot be commented upon due to renal excretion of contrast. Incidentally detected 33 mm right renal [place] 1 simple cortical cyst. No follow-up is recommended as incidentally detected renal lesions are likely benign.Solid nodule, measuring 5 mm is seen in the left lower lobe in subpleural location, image 5, series 3. Subsegmental atelectasis is seen in the left lower lobe.An enhancing lesion seen in the right lobe of liver suggestive of a haemangioma or hepatic adenoma. CT scan of the abdomen and pelvis without contrast revealed-Punctate bilateral nonobstructing nephrolithiasis. Bilateral residual contrast in the collecting systems. No hydronephrosis in either kidney. Bilateral parapelvic cysts. Right cortical renal cyst. Normal appearance of the urinary bladder without mass or filling defect. 5 mm left lower lobe pulmonary nodule. Follow-up according to Fleischner recommendations recommended. Ultrasound of the kidney revealed- Left renal pelviectasis. There is no sonographic evidence of nephrolithiasis. 4.4 cm right lower pole benign- appearing renal sinus cyst. CXR no Acute cardiopulmonary disease. PMH-nonsignificant PSH- tubal ligation Allergy- codeine, penicillin Personal History/ Social History- ex-smoker, social alcoholic, use weeds Patient was seen today at the bedside. Patient complained of right flank pain and rash in the right groin and right thigh Cardiovascular- deny acute chest pain or shortness of breath or cough or palpitation Respiratory- denies cough or short of breath or wheezing Gastrointestinal- denies any rectal bleeding, nausea or vomiting Musculoskeletal-denies acute joint swelling or tenderness or redness Neurological- denies acute dysarthria, dysphagia, change in vision Psychiatry- denies depression or SI or HI Patient was seen today for clinical evaluation. Labs and chart reviewed. Patient has rash on the thigh and right inguinal region and right lower back is improving, drying, but patient still complaining of ongoing pain. Patient's pain is being managed by multiple p.r.n. medication including ibuprofen. Patient and her family requested be transferred to [facility]. No update from the [facility] today. Today WBC 10.1, serum creatinine 0.58. No change in medications so far. Patient is off ceftriaxone. Patient is getting IV acyclovir and vancomycin, tolerating well, no side effect noted so far. Patient's discharge order was canceled as there is a less positive to be transferred. Objective vital signs Vital Sign Date Time Temp Pulse Resp B/P (MAP) Pulse Ox O2 Delivery O2 Flow Rate FiO2 06/21/24 10:26 71 18 134/90 06/21/24 09:00 97.8 98 97.8 06/20/24 20:00 Room Air* 0 N/A Oxymizer Total Intake and Output 06/20/24 06/20/24 06/21/24 15:00 23:00 07:00 Intake Total 125 ml 1000 ml 732 ml Balance 125 ml 1000 ml 732 ml medications Current Medications Medications Dose Ordered Sig/Yazan Route Start Time Stop Time Status Last Admin Dose Admin Acetaminophen 325 mg Q4HP PRN PO 06/16/24 04:15 06/16/24 08:02 325 MG Ondansetron HCl 4 mg Q4HP PRN IV 06/16/24 04:15 06/19/24 19:00 4 MG Enoxaparin Sodium 40 mg DAILY SC 06/16/24 10:00 06/21/24 09:59 40 MG Nitroglycerin 0.4 mg Q5MINP PRN SL 06/16/24 04:15 Pantoprazole Sodium 40 mg DAILY IV 06/16/24 10:00 06/21/24 09:57 40 MG Acyclovir Sodium 0 ml @ 0 mls/hr PER PHARMACY IV 06/17/24 17:45 Acyclovir Sodium 600 mg/Sodium Chloride 262 ml @ 262 mls/hr Q8HR IV 06/18/24 14:00 06/21/24 08:39 262 MLS/HR Vancomycin HCl 0 ml @ 0 mls/hr UD IV 06/18/24 19:45 Methylprednisolone Sodium Succinate 60 mg BID IV 06/18/24 22:00 06/21/24 09:57 60 MG Gabapentin 300 mg TID PO 06/20/24 09:00 06/21/24 06:17 300 MG Ibuprofen 600 mg TID PO 06/20/24 14:00 06/21/24 06:17 600 MG Oxycodone/ Acetaminophen 1 tab Q4HP PRN PO 06/20/24 12:00 06/21/24 08:39 1 TAB Hydromorphone HCl 1 mg Q4HPRN PRN IV 06/20/24 10:45 06/21/24 10:26 1 MG Lactulose 60 ml BID PO 06/20/24 22:00 06/21/24 09:58 60 ML Docusate Sodium 100 mg BID PO 06/20/24 22:00 06/21/24 09:59 100 MG Capsaicin 1 applic BID TOP 06/20/24 22:00 Lorazepam 0.5 mg Q6HP PRN IV 06/20/24 15:00 06/21/24 00:38 0.5 MG Vancomycin HCl 200 ml @ 200 mls/hr Q12H IV 06/21/24 17:00 Examination General examination- awake, alert, oriented, cooperative. HEENT- PEERLA, no acute nasal discharge Cardiovascular- S1-S2 audible, rate and rhythm regular, no murmur Respiratory- CTAB, no wheeze or rhonchi Gastrointestinal-right upper quadrant tenderness, bowel sound+. Nondistended Musculoskeletal-no acute joint swelling or tenderness or redness# Lower extremity- right thigh tender to touch, no redness or swelling Neurological- cranial nerves intact, no acute dysarthria or dysphagia Psychiatry- denies depression or SI or HIGeneral examination- awake, alert, oriented, cooperative. Skin-vesicular rash over the right groin area and on the right thigh up to above knee, but right lower back, there also scattered lesion on left upper chest laboratory and microbiology Laboratory Tests 06/21/24 03:51 06/20/24 05:13 Test 06/20/24 05:13 Range/Units Serum Glucose 131 H 74-106 mg/dL Microbiology Date/Time Source Procedure Growth Status 06/16/24 01:21 Voided Urine Urine Culture - Final Complete Problem List/Assessment/Plan Problem List/Assessment/Plan Assessment/Plan 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 -patient evaluated at bedside, no extension rash today, patient rashes are drying up, no new rashes seen today, patient complains of ongoing pain in the rash area -continue acyclovir IV as per pharmacy protocol -on 06/18/24 Discontinued prednisolone 40 mg q.d. q.d.. -on 06/19/24 Started methylprednisolone 60mg BID - continue vancomycin as per pharmacy protocol -continue gabapentin 300 mg b.i.d. -continue Percocet , Dilaudid p.r.n., -ordered ibuprofen p.r.n. as prescribed Right flank pain due to suspected acute pyelonephritis -urinalysis positive for leukocyte esterase 3+, uterine bacteria 32 -urine culture came back showing no growth at this time -status post ceftriaxone 1 g IV daily -Discontinued normal saline, IV fluids on 06/18/24 -continue pain medication as ordered Suspected acute pyelonephritis of right kidney -urinalysis positive for leukocyte esterase 3+, uterine bacteria 32 -urine culture came back showing no growth at this time -status post ceftriaxone 1 g IV daily -continue pain medication as ordered # hypokalemia-replenished -potassium 3.4, no acute symptom Anxiety -continue lorazepam p.r.n. as ordered Substance abuse -patient tested positive for cannabinoids -was counseled about the effect of substance abuse on health Obesity, BMI 29.3 -patient was counseled about healthy diet, weight reduction, low-fat diet, physical activity Incidental pulmonary nodule. -CT abd showed a 5 mm left lower lobe, outpatient follow up 4.4 cm right lower pole benign-appearing renal sinus cyst. -outpatient follow up PUD prophylaxis: Pantoprazole DVT prophylaxis: patient refusing lovenox Goals of care discussed with the patient at bedside for > 20min, FULL CODE Plan discussed with Dr. Villasenor Plan discussed with: Patient Plan discussed with: Patient, Daughter (RN) Dietary Evaluation Review Comments: 1. Continue current diet 2. Consider Ensure BID to improve PO intake to provide 30g pro,700kcal Expected Outcomes/Goals: 1. Pt will consume >75% of estimated needs witin 3-5 days Date of Service: Jun 21, 2024 Billing Provider: NATHAN VILLASENOR MD Common Visit Codes: [id number] INP/OBS CARE(HIGH) RAJIV BOLTON RESIDENT Jun 21, 2024 11:14 NATHAN VILLASENOR MD Jun 21, 2024 20:30
[2024-06-21 14:06] LABS: Anti-Centromere B Antibody <0.2 AI (0.0-0.9); Anti-Jo-1 Antibody <0.2 AI (0.0-0.9); Anti-dsDNA Antibody <1 IU/mL (0-9); Antichromatin Antibody <0.2 AI (0.0-0.9); Antiscleroderma-70 Antibody <0.2 AI (0.0-0.9); RNP Antibody 0.2 AI (0.0-0.9); Sjogren's Anti-SS-A Antibody >8.0 AI (0.0-0.9); Sjogren's Anti-SS-B Antibody <0.2 AI (0.0-0.9); Smith Antibody <0.2 AI (0.0-0.9)
[2024-06-21] MEDS: VANCOMYCIN 1GM/200ML PREMIX 200 ML IV SCH (18:07)
[2024-06-22] VITALS (7 sets, daily range): BP systolic 122–148; BP diastolic 71–93; PULSE 60–80; RESP 16–20; TEMP 97.4–98.5; O2SAT 97–99
[2024-06-22 05:46] LABS: Basophils # (auto) 0 10 ^3/uL (0-0.2); Eosinophils # (auto) 0 10 ^3/uL (0-0.8); Hematocrit 40.6 % (36.0-46.0); Hemoglobin 13.6 g/dL (12.2-16.2); Lymphocytes # (auto) 1.3 10 ^3/uL (0.4-5.4); Lymphocytes % (auto) 15.1 % (10.0-50.0); Mean Corpuscular Hemoglobin 31.7 pg (28.0-32.0); Mean Corpuscular Hgb Conc. 33.5 g/dL (32.0-36.0); Mean Corpuscular Volume 94.6 fL (80.0-100.0); Monocytes # (auto) 0.5 10 ^3/uL (0-1.3); Monocytes % (auto) 5.6 % (0.0-12.0); Neutrophils # (auto) 7.1 10 ^3/uL (1.6-8.6); Neutrophils % (auto) 79.3 % (37.0-80.0); Platelet Count (auto) 234 10^3/uL (140-450); Red Blood Cells 4.29 10^6/uL (4.0-5.20); Red Cell Distribution Width 13.4 % (11.8-14.3); White Blood Cell 8.9 10^3/uL (4.4-10.8)
[2024-06-22 06:55] LABS: Alanine Aminotransferase 13 U/L (7-40); Alkaline Phosphatase 45 U/L (46-116); Anion Gap 9 (5-15); Aspartate Aminotransferase < 8 U/L (13-40); BUN/Creatinine Ratio 23.7 (10.0-20.0); Blood Urea Nitrogen 14 mg/dL (9-23); Calcium 8.4 mg/dL (8.7-10.4); Carbon Dioxide 21 mmol/L (20-31); Chloride 111 mmol/L (98-107); Glucose 130 mg/dL (74-106); Sodium 141 mmol/L (136-145)
[2024-06-22 06:56] LABS: Bilirubin, Total 0.2 mg/dL (0.2-1.0); Total Protein 4.6 g/dL (5.7-8.2)
[2024-06-22] MEDS: HYDROmorphone HCL 2 MG/ML VL/or syr IV PRN (14:20)
--- NOTE | 2024-06-22 14:26 | DVHPNRES ---
Progress Note Date Seen: Jun 22, 2024 Resident Creating Document: RAJIV BOLTON RESIDENT Has the PT tested + for MRSA If YES, has PT been informed?: No Medical Necessity Reason Pt with a Central, PICC or Fol: No Subjective Review of Systems Patient is 64 years old female with no significant past medical history came with a complaint of right lower back pain started 8-9 days ago. As per patient pain developed gradually, 10/10, sharp in nature, radiating to the right thigh, no aggravating factor, some relief with pain medication. Patient also complained of nausea and vomiting which was mainly food and water but no blood. Patient also reported having fever 101F at home. Patient also endorsed constipation for which she took laxatives. Patient denied any chest pain, short of breath, acute joint pain or swelling, headache, vertigo. With the symptom patient went to [facility] and as per patient patient was told she has gallbladder sludge. Recent lab workup revealed leukocytosis, WBC 13.7, urinalysis revealed leukocyte esterase 3+, WBC 32, UDS was positive for fentanyl and cannabinoids. CT abdomen and pelvis with contrast revealed- Bilateral hydronephrosis / Parapelvic cyst. Suggest correlation with CT urography. Bilateral renal calculi cannot be commented upon due to renal excretion of contrast. Incidentally detected 33 mm right renal [place] 1 simple cortical cyst. No follow-up is recommended as incidentally detected renal lesions are likely benign.Solid nodule, measuring 5 mm is seen in the left lower lobe in subpleural location, image 5, series 3. Subsegmental atelectasis is seen in the left lower lobe.An enhancing lesion seen in the right lobe of liver suggestive of a haemangioma or hepatic adenoma. CT scan of the abdomen and pelvis without contrast revealed-Punctate bilateral nonobstructing nephrolithiasis. Bilateral residual contrast in the collecting systems. No hydronephrosis in either kidney. Bilateral parapelvic cysts. Right cortical renal cyst. Normal appearance of the urinary bladder without mass or filling defect. 5 mm left lower lobe pulmonary nodule. Follow-up according to Fleischner recommendations recommended. Ultrasound of the kidney revealed- Left renal pelviectasis. There is no sonographic evidence of nephrolithiasis. 4.4 cm right lower pole benign- appearing renal sinus cyst. CXR no Acute cardiopulmonary disease. PMH-nonsignificant PSH- tubal ligation Allergy- codeine, penicillin Personal History/ Social History- ex-smoker, social alcoholic, use weeds Patient was seen today at the bedside. Patient complained of right flank pain and rash in the right groin and right thigh Cardiovascular- deny acute chest pain or shortness of breath or cough or palpitation Respiratory- denies cough or short of breath or wheezing Gastrointestinal- denies any rectal bleeding, nausea or vomiting Musculoskeletal-denies acute joint swelling or tenderness or redness Neurological- denies acute dysarthria, dysphagia, change in vision Psychiatry- denies depression or SI or HI Patient was seen today for clinical evaluation. Labs and chart reviewed. As the patient's rash is improving plan is to discharge home tomorrow. Patient's rash is overall improving, Patient has rash on the thigh and right inguinal region and right lower back is improving, drying, but patient still complaining of ongoing pain. Patient's pain is being managed by multiple p.r.n. medication including ibuprofen. Objective vital signs Vital Sign Date Time Temp Pulse Resp B/P (MAP) Pulse Ox O2 Delivery O2 Flow Rate FiO2 06/22/24 13:02 97.9 80 18 148/86 (106) 97 97.9 06/21/24 20:00 Room Air* 0 21 Total Intake and Output 06/21/24 06/21/24 06/22/24 15:00 23:00 07:00 Intake Total 1120 ml Balance 1120 ml medications Current Medications Medications Dose Ordered Sig/Yazan Route Start Time Stop Time Status Last Admin Dose Admin Acetaminophen 325 mg Q4HP PRN PO 06/16/24 04:15 06/16/24 08:02 325 MG Ondansetron HCl 4 mg Q4HP PRN IV 06/16/24 04:15 06/19/24 19:00 4 MG Enoxaparin Sodium 40 mg DAILY SC 06/16/24 10:00 06/22/24 10:05 40 MG Nitroglycerin 0.4 mg Q5MINP PRN SL 06/16/24 04:15 Pantoprazole Sodium 40 mg DAILY IV 06/16/24 10:00 06/22/24 10:05 40 MG Acyclovir Sodium 0 ml @ 0 mls/hr PER PHARMACY IV 06/17/24 17:45 Acyclovir Sodium 600 mg/Sodium Chloride 262 ml @ 262 mls/hr Q8HR IV 06/18/24 14:00 06/22/24 06:18 262 MLS/HR Vancomycin HCl 0 ml @ 0 mls/hr UD IV 06/18/24 19:45 Methylprednisolone Sodium Succinate 60 mg BID IV 06/18/24 22:00 06/22/24 10:04 60 MG Gabapentin 300 mg TID PO 06/20/24 09:00 06/22/24 14:04 300 MG Ibuprofen 600 mg TID PO 06/20/24 14:00 06/22/24 14:04 600 MG Oxycodone/ Acetaminophen 1 tab Q4HP PRN PO 06/20/24 12:00 06/22/24 11:29 1 TAB Docusate Sodium 100 mg BID PO 06/20/24 22:00 06/22/24 10:05 100 MG Capsaicin 1 applic BID TOP 06/20/24 22:00 Lorazepam 0.5 mg Q6HP PRN IV 06/20/24 15:00 06/22/24 10:06 0.5 MG Vancomycin HCl 200 ml @ 200 mls/hr Q12H IV 06/21/24 17:00 06/22/24 04:51 200 MLS/HR Hydromorphone HCl 0.5 mg Q4HPRN PRN IV 06/22/24 10:15 Lactulose 30 ml DAILYPRN PRN PO 06/23/24 10:00 Examination General examination- awake, alert, oriented, cooperative. HEENT- PEERLA, no acute nasal discharge Cardiovascular- S1-S2 audible, rate and rhythm regular, no murmur Respiratory- CTAB, no wheeze or rhonchi Gastrointestinal-right upper quadrant tenderness, bowel sound+. Nondistended Musculoskeletal-no acute joint swelling or tenderness or redness# Lower extremity- right thigh tender to touch, no redness or swelling Neurological- cranial nerves intact, no acute dysarthria or dysphagia Psychiatry- denies depression or SI or HIGeneral examination- awake, alert, oriented, cooperative. 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 -patient evaluated at bedside, no extension rash today, patient rashes are drying up, no new rashes seen today, patient complains of ongoing pain in the rash area -continue acyclovir IV as per pharmacy protocol -on 06/18/24 Discontinued prednisolone 40 mg q.d. q.d.. -on 06/19/24 Started methylprednisolone 60mg BID - continue vancomycin as per pharmacy protocol -continue gabapentin 300 mg b.i.d. -continue Percocet , decreased Dilaudid to have dose p.r.n. -ordered ibuprofen p.r.n. as prescribed Right flank pain due to suspected acute pyelonephritis -urinalysis positive for leukocyte esterase 3+, uterine bacteria 32 -urine culture came back showing no growth at this time -status post ceftriaxone 1 g IV daily -Discontinued normal saline, IV fluids on 06/18/24 -continue pain medication as ordered Suspected acute pyelonephritis of right kidney -urinalysis positive for leukocyte esterase 3+, uterine bacteria 32 -urine culture came back showing no growth at this time -status post ceftriaxone 1 g IV daily -continue pain medication as ordered # hypokalemia- corrected -monitor BMP Anxiety -continue lorazepam p.r.n. as ordered Substance abuse -patient tested positive for cannabinoids -was counseled about the effect of substance abuse on health Obesity, BMI 29.3 -patient was counseled about healthy diet, weight reduction, low-fat diet, physical activity Incidental pulmonary nodule. -CT abd showed a 5 mm left lower lobe, outpatient follow up 4.4 cm right lower pole benign-appearing renal sinus cyst. -outpatient follow up PUD prophylaxis: Pantoprazole DVT prophylaxis: patient refusing lovenox Goals of care discussed with the patient at bedside for > 20min, FULL CODE Plan discussed with Dr. Villasenor Plan discussed with: Patient Plan discussed with: Patient, Daughter, Other (RN) Dietary Evaluation Review Comments: 1. Continue current diet 2. Consider Ensure BID to improve PO intake to provide 30g pro,700kcal Expected Outcomes/Goals: 1. Pt will consume >75% of estimated needs witin 3-5 days Date of Service: Jun 22, 2024 Billing Provider: NATHAN VILLASENOR MD Common Visit Codes: [id number] INP/OBS CARE(MOD) RAJIV BOLTON RESIDENT Jun 22, 2024 14:26 NATHAN VILLASENOR MD Jun 24, 2024 19:52
[2024-06-23] VITALS (7 sets, daily range): BP systolic 122–153; BP diastolic 66–87; PULSE 61–77; RESP 12–18; TEMP 97.9–98.7; O2SAT 90–100
[2024-06-23] MEDS: ACYCLOVIR SOD 50MG/ML 600 MG in SODIUM CHL 0.9% 250 ML IV SCH (03:35)
[2024-06-23 06:10] LABS: Basophils # (auto) 0 10 ^3/uL (0-0.2); Basophils % (auto) 0.1 % (0.0-2.0); Eosinophils # (auto) 0 10 ^3/uL (0-0.8); Hematocrit 40.8 % (36.0-46.0); Hemoglobin 13.9 g/dL (12.2-16.2); Lymphocytes # (auto) 1.6 10 ^3/uL (0.4-5.4); Mean Corpuscular Hgb Conc. 34.1 g/dL (32.0-36.0); Mean Corpuscular Volume 93.9 fL (80.0-100.0); Monocytes # (auto) 0.5 10 ^3/uL (0-1.3); Monocytes % (auto) 5.9 % (0.0-12.0); Neutrophils # (auto) 6.5 10 ^3/uL (1.6-8.6); Nucleated Red Blood Cells % 0.1 %; Platelet Count (auto) 289 10^3/uL (140-450); Red Blood Cells 4.35 10^6/uL (4.0-5.20); White Blood Cell 8.6 10^3/uL (4.4-10.8)
[2024-06-23 06:31] LABS: Anion Gap 8 (5-15); Carbon Dioxide 23 mmol/L (20-31); Chloride 110 mmol/L (98-107); Potassium 3.8 mmol/L (3.5-5.1); Sodium 141 mmol/L (136-145)
[2024-06-23 06:32] LABS: Calcium 8.7 mg/dL (8.7-10.4)
[2024-06-23 06:37] LABS: BUN/Creatinine Ratio 24.6 (10.0-20.0); Blood Urea Nitrogen 14 mg/dL (9-23); Glucose 117 mg/dL (74-106)
--- NOTE | 2024-06-23 06:37 | DVHDSRES ---
Discharge Summary Date of Admission Resident Creating Document: RAJIV BOLTON RESIDENT Jun 16, 2024 at 04:15 Date of Discharge: Jun 20, 2024 Admitting Diagnosis Pain in the right flank Labs/Diagnostic Data: Laboratory Results Test 06/23/24 04:56 06/22/24 16:20 06/22/24 04:46 06/18/24 06:59 White Blood Count 8.6 10^3/uL (4.4-10.8) Red Blood Count 4.35 10^6/uL (4.0-5.20) Hemoglobin 13.9 g/dL (12.2-16.2) Hematocrit 40.8 % (36.0-46.0) Mean Corpuscular Volume 93.9 fL (80.0-100.0) Mean Corpuscular Hemoglobin 32.0 pg (28.0-32.0) Mean Corpuscular Hemoglobin Concent 34.1 g/dL (32.0-36.0) Red Cell Distribution Width 13.0 % (11.8-14.3) Platelet Count 289 10^3/uL (140-450) Mean Platelet Volume 7.8 fL (6.9-10.8) Neutrophils (%) (Auto) 76.0 % (37.0-80.0) Lymphocytes (%) (Auto) 18.0 % (10.0-50.0) Monocytes (%) (Auto) 5.9 % (0.0-12.0) Eosinophils (%) (Auto) 0.0 % (0.0-7.0) Basophils (%) (Auto) 0.1 % (0.0-2.0) Neutrophils # (Auto) 6.5 10 ^3/uL (1.6-8.6) Lymphocytes # (Auto) 1.6 10 ^3/uL (0.4-5.4) Monocytes # (Auto) 0.5 10 ^3/uL (0-1.3) Eosinophils # (Auto) 0 10 ^3/uL (0-0.8) Basophils # (Auto) 0 10 ^3/uL (0-0.2) Nucleated Red Blood Cells 0.1 % Vancomycin Level Trough 11.0 ug/mL (5-10) Total Bilirubin 0.2 mg/dL (0.2-1.0) Aspartate Amino Transferase (AST) < 8 U/L (13-40) Alanine Aminotransferase (ALT) 13 U/L (7-40) Alkaline Phosphatase 45 U/L (46-116) Total Protein 4.6 g/dL (5.7-8.2) Albumin 3.0 g/dL (3.2-4.8) Anti-Nuclear Antibody Comment Comment (.) BENOIT-1 Antibody <0.2 AI (0.0-0.9) SS-A/Ro Antibody >8.0 AI (0.0-0.9) SS-B/La Antibody <0.2 AI (0.0-0.9) Sm Antibody <0.2 AI (0.0-0.9) MID LEVEL [employer]OPER Antibody 0.2 AI (0.0-0.9) Scl-70 (Scleroderma) Antibody <0.2 AI (0.0-0.9) Anti-Double Strand DNA Antibody <1 IU/mL (0-9) Chromatin Antibody <0.2 AI (0.0-0.9) Centromere B Antibody <0.2 AI (0.0-0.9) Test 06/17/24 18:35 06/16/24 04:50 06/16/24 01:21 06/16/24 00:36 HIV (1&2) Antibody Negative (Negative) Hemoglobin A1c 4.8 % A1C (<5.7) Vitamin B12 Level 547 pg/mL (211-911) Vitamin D 25-Hydroxy 37.0 ng/mL (30.0-100) Thyroid Stimulating Hormone (TSH) 0.85 uIU/mL (0.55-4.78) Urine Color Light-yellow (Yellow) Urine Clarity Clear (Clear) Urine pH 5.0 (5.0-9.0) Urine Specific [place] 1.018 (1.001-1.035) Urine Protein Negative (Negative) Urine Ketones 3+ (Negative) Urine Blood 2+ /uL (Negative) Urine Nitrite Negative (Negative) Urine Bilirubin Negative (Negative) Urine Urobilinogen Normal mg/dL (Negative) Urine Leukocyte Esterase 3+ /uL (Negative) Urine RBC 11 /hpf (0 - 4) Urine WBC 32 /hpf (0 - 5) Urine Squamous Epithelial Cells Few /hpf (<5) Urine Bacteria None seen /hpf (None Seen) Urine Mucus Few (None Seen) Urine Glucose Normal mg/dL (Normal) Urine Opiates Screen Neg (NEGATIVE) Urine Fentanyl Screen Pos (NEGATIVE) Urine Barbiturates Screen Neg (NEGATIVE) Urine Phencyclidine Screen Neg (NEGATIVE) Urine Amphetamines Screen Neg (NEGATIVE) Urine Benzodiazepines Screen Neg (NEGATIVE) Urine Cocaine Screen Neg (NEGATIVE) Urine Cannabinoids Screen Pos (NEGATIVE) Troponin I High Sensitivity 7 ng/L (</=34) Test 06/15/24 23:42 Lactic Acid Level 0.9 mmol/L (0.4-2.0) Lipase 34 U/L (12-53) Other Laboratory Tests 06/23/24 04:56 Brief Hx & Hospital Course: Patient is 64 years old female with no significant past medical history came with a complaint of right lower back pain started 8-9 days ago. As per patient pain developed gradually, 10/10, sharp in nature, radiating to the right thigh, no aggravating factor, some relief with pain medication. Patient also complained of nausea and vomiting which was mainly food and water but no blood. Patient also reported having fever 101F at home. Patient also endorsed constipation for which she took laxatives. Patient denied any chest pain, short of breath, acute joint pain or swelling, headache, vertigo. With the symptom patient went to [facility] and as per patient patient was told she has gallbladder sludge. Recent lab workup revealed leukocytosis, WBC 13.7, urinalysis revealed leukocyte esterase 3+, WBC 32, UDS was positive for fentanyl and cannabinoids. CT abdomen and pelvis with contrast revealed- Bilateral hydronephrosis / Parapelvic cyst. Suggest correlation with CT urography. Bilateral renal calculi cannot be commented upon due to renal excretion of contrast. Incidentally detected 33 mm right renal [place] 1 simple cortical cyst. No follow-up is recommended as incidentally detected renal lesions are likely benign.Solid nodule, measuring 5 mm is seen in the left lower lobe in subpleural location, image 5, series 3. Subsegmental atelectasis is seen in the left lower lobe.An enhancing lesion seen in the right lobe of liver suggestive of a haemangioma or hepatic adenoma. CT scan of the abdomen and pelvis without contrast revealed-Punctate bilateral nonobstructing nephrolithiasis. Bilateral residual contrast in the collecting systems. No hydronephrosis in either kidney. Bilateral parapelvic cysts. Right cortical renal cyst. Normal appearance of the urinary bladder without mass or filling defect. 5 mm left lower lobe pulmonary nodule. Follow-up according to Fleischner recommendations recommended. Ultrasound of the kidney revealed- Left renal pelviectasis. There is no sonographic evidence of nephrolithiasis. 4.4 cm right lower pole benign- appearing renal sinus cyst. CXR no Acute cardiopulmonary disease. There is no rash noted during admission or on 06/16/2024 neither patient complete about any rash. On Thursday06/17/2024 patient was rash on the right inguinal region including on the right side of the vagina the right thigh, right lower buttock. Distress casually was extending to the right lower back, on the right thigh just the knee. There was some rash scattered on the left upper chest, only few. Patient is being treated with IV acyclovir 600 mg IV Q 8 H, methylprednisolone 60 IV b.i.d., vancomycin 1 g Q 18 hour to prevent secondary bacterial infection, pantoprazole 40 mg IV daily L with other supportive management including pain killer.. Patient's leukocytosis resolved, urine culture negative for any bacterial growth. Patient and her family requested be transferred to [facility]. Patient and her family being transferred to an acute care facility in hemodynamically stable condition. PMH-nonsignificant PSH- tubal ligation Allergy- codeine, penicillin Personal History/ Social History- ex-smoker, social alcoholic, use weeds Patient was seen today at the bedside. Patient pain pain in the right thigh, right flank, right inguinal region Cardiovascular- deny acute chest pain or shortness of breath or cough or palpitation Respiratory- denies cough or short of breath or wheezing Gastrointestinal- denies any rectal bleeding, nausea or vomiting Musculoskeletal-denies acute joint swelling or tenderness or redness Neurological- denies acute dysarthria, dysphagia, change in vision Psychiatry- denies depression or SI or HI General examination- awake, alert, oriented, cooperative. HEENT- PEERLA, no acute nasal discharge Cardiovascular- S1-S2 audible, rate and rhythm regular, no murmur Respiratory- CTAB, no wheeze or rhonchi Gastrointestinal-right upper quadrant tenderness, bowel sound+. Nondistended Musculoskeletal-no acute joint swelling or tenderness or redness# Lower extremity- right thigh tender to touch, no redness or swelling Neurological- cranial nerves intact, no acute dysarthria or dysphagia Psychiatry- denies depression or SI or HIGeneral examination- awake, alert, oriented, cooperative. Skin-vesicular rash over the right groin area and on the right thigh up to above knee, but right lower back, there also scattered lesion on left upper chest Condition at Discharge: Stable Final Diagnosis/Problems List Disseminated herpes zoster on the right inguinal region, right thigh, right buttock. Right flank pain due to suspected acute pyelonephritis Suspected acute pyelonephritis of right kidney hypokalemia-replenished Substance abuse-tested positive for cannabinoids Anxiety Discharge Disposition: Acute Care Facility Discharge Instruct/Medications Diet: Cardiac 2g Na,low cholest Activity: No Restrictions, As Tolerated Follow Up/Referral: Accepting MD Dr. Ferro Medications: See med rec Discharge Statement: "Patient was advised to return to the ER or call 911 if any headaches, dizziness, shortness of breath, chest pain, abdominal pain, bleeding, fevers, or worsening of medical condition. Patient was counseled about treatment plan, medications, possible side effects, patientverbalized understanding. All questions were answered to the best of my ability. This discharge took greater then 30 minutes in planning, reviewing documentation, counseling the patient, and discussing with other team members." ASSESSMENT ASSESSMENT Assessment Disseminated herpes zoster on the right inguinal region, right thigh,right buttock.Right flank pain due to suspected acute pyelonephritisSuspected acute pyelonephritis of right kidney hypokalemia-replenishedSubstance abuse-tested positive for cannabinoidsAnxiety RAJIV BOLTON RESIDENT Jun 23, 2024 06:37
[2024-06-23] MEDS: GABAPENTIN 100 MG CAP PO ONE (09:56)
[2024-06-23] MEDS ORDERED: LACTULOSE 20Gm/30ML SOLN PO PRN (10:00)
[2024-06-23] MEDS: predniSONE 20 MG TAB PO SCH (10:33)
--- NOTE | 2024-06-23 11:28 | DVHPNRES ---
Progress Note Date Seen: Jun 23, 2024 Resident Creating Document: RAJIV BOLTON RESIDENT Has the PT tested + for MRSA If YES, has PT been informed?: No Medical Necessity Reason Pt with a Central, PICC or Fol: No Subjective Review of Systems Patient is 64 years old female with no significant past medical history came with a complaint of right lower back pain started 8-9 days ago. As per patient pain developed gradually, 10/10, sharp in nature, radiating to the right thigh, no aggravating factor, some relief with pain medication. Patient also complained of nausea and vomiting which was mainly food and water but no blood. Patient also reported having fever 101F at home. Patient also endorsed constipation for which she took laxatives. Patient denied any chest pain, short of breath, acute joint pain or swelling, headache, vertigo. With the symptom patient went to [facility] and as per patient patient was told she has gallbladder sludge. Recent lab workup revealed leukocytosis, WBC 13.7, urinalysis revealed leukocyte esterase 3+, WBC 32, UDS was positive for fentanyl and cannabinoids. CT abdomen and pelvis with contrast revealed- Bilateral hydronephrosis / Parapelvic cyst. Suggest correlation with CT urography. Bilateral renal calculi cannot be commented upon due to renal excretion of contrast. Incidentally detected 33 mm right renal [place] 1 simple cortical cyst. No follow-up is recommended as incidentally detected renal lesions are likely benign.Solid nodule, measuring 5 mm is seen in the left lower lobe in subpleural location, image 5, series 3. Subsegmental atelectasis is seen in the left lower lobe.An enhancing lesion seen in the right lobe of liver suggestive of a haemangioma or hepatic adenoma. CT scan of the abdomen and pelvis without contrast revealed-Punctate bilateral nonobstructing nephrolithiasis. Bilateral residual contrast in the collecting systems. No hydronephrosis in either kidney. Bilateral parapelvic cysts. Right cortical renal cyst. Normal appearance of the urinary bladder without mass or filling defect. 5 mm left lower lobe pulmonary nodule. Follow-up according to Fleischner recommendations recommended. Ultrasound of the kidney revealed- Left renal pelviectasis. There is no sonographic evidence of nephrolithiasis. 4.4 cm right lower pole benign- appearing renal sinus cyst. CXR no Acute cardiopulmonary disease. PMH-nonsignificant PSH- tubal ligation Allergy- codeine, penicillin Personal History/ Social History- ex-smoker, social alcoholic, use weeds Patient was seen today at the bedside. Patient complained of right flank pain and rash in the right groin and right thigh Cardiovascular- deny acute chest pain or shortness of breath or cough or palpitation Respiratory- denies cough or short of breath or wheezing Gastrointestinal- denies any rectal bleeding, nausea or vomiting Musculoskeletal-denies acute joint swelling or tenderness or redness Neurological- denies acute dysarthria, dysphagia, change in vision Psychiatry- denies depression or SI or HI Patient was seen today for clinical evaluation. Labs and chart reviewed. Patient's rash is overall improving, rashes are drying up. On 06/23/2024 discontinued vancomycin, methylprednisolone. Ordered prednisolone 40 mg daily, increase gabapentin from 300 t.i.d. to 600 p.o. t.i.d., increase ibuprofen from 600-800 p.o. t.i.d. possible discharge tomorrow as per Dr. Villasenor. Objective vital signs Vital Sign Date Time Temp Pulse Resp B/P (MAP) Pulse Ox O2 Delivery O2 Flow Rate FiO2 06/23/24 08:59 98.7 64 16 149/72 (97) 96 98.7 06/23/24 08:10 Room Air* 0 21 Total Intake and Output 06/22/24 06/22/24 06/23/24 15:00 23:00 07:00 Intake Total 1400 ml 700 ml Balance 1400 ml 700 ml medications Current Medications Medications Dose Ordered Sig/Yazan Route Start Time Stop Time Status Last Admin Dose Admin Acetaminophen 325 mg Q4HP PRN PO 06/16/24 04:15 06/16/24 08:02 325 MG Ondansetron HCl 4 mg Q4HP PRN IV 06/16/24 04:15 06/19/24 19:00 4 MG Enoxaparin Sodium 40 mg DAILY SC 06/16/24 10:00 06/23/24 09:56 40 MG Nitroglycerin 0.4 mg Q5MINP PRN SL 06/16/24 04:15 Pantoprazole Sodium 40 mg DAILY IV 06/16/24 10:00 06/23/24 09:56 40 MG Acyclovir Sodium 0 ml @ 0 mls/hr PER PHARMACY IV 06/17/24 17:45 Oxycodone/ Acetaminophen 1 tab Q4HP PRN PO 06/20/24 12:00 06/22/24 16:41 1 TAB Docusate Sodium 100 mg BID PO 06/20/24 22:00 06/23/24 09:56 100 MG Capsaicin 1 applic BID TOP 06/20/24 22:00 Lorazepam 0.5 mg Q6HP PRN IV 06/20/24 15:00 06/23/24 09:56 0.5 MG Hydromorphone HCl 0.5 mg Q4HPRN PRN IV 06/22/24 10:15 06/23/24 04:05 0.5 MG Lactulose 30 ml DAILYPRN PRN PO 06/23/24 10:00 Acyclovir Sodium 600 mg/Sodium Chloride 262 ml @ 262 mls/hr Q8H IV 06/23/24 02:00 06/23/24 09:56 262 MLS/HR Gabapentin 600 mg TID PO 06/23/24 14:00 Ibuprofen 800 mg TID PO 06/23/24 14:00 Prednisone 40 mg DAILY PO 06/23/24 10:00 06/23/24 10:33 40 MG Examination General examination- awake, alert, oriented, cooperative. HEENT- PEERLA, no acute nasal discharge Cardiovascular- S1-S2 audible, rate and rhythm regular, no murmur Respiratory- CTAB, no wheeze or rhonchi Gastrointestinal-right upper quadrant tenderness, bowel sound+. Nondistended Musculoskeletal-no acute joint swelling or tenderness or redness# Lower extremity- right thigh tender to touch, no redness or swelling Neurological- cranial nerves intact, no acute dysarthria or dysphagia Psychiatry- denies depression or SI or HIGeneral examination- awake, alert, oriented, cooperative. Skin-vesicular rash over the right groin area and on the right thigh up to above knee, but right lower back, there also scattered lesion on left upper chest, over rash are drying up, improving laboratory and microbiology Laboratory Tests 06/23/24 04:56 Test 06/23/24 04:56 Range/Units Serum Glucose 117 H 74-106 mg/dL Microbiology Date/Time Source Procedure Growth Status 06/16/24 01:21 Voided Urine Urine Culture - Final Complete Problem List/Assessment/Plan Problem List/Assessment/Plan Assessment/Plan #Disseminated herpes zoster on the right inguinal region, right thigh, right buttock. -patient evaluated at bedside, no extension rash today, patient rashes are drying up, no new rashes seen today, patient complains of ongoing pain in the rash area -continue acyclovir IV as per pharmacy protocol -on 06/18/24 Discontinued prednisolone 40 mg q.d. q.d.. -on 06/23/2024 discontinued methylprednisolone -on 06/23/2024 ordered prednisolone 40 mg p.o. daily. - on 06/23/2024 discontinued vancomycin -06/23/2024 increased gabapentin from 300 to 600 mg t.i.d. -on 06/23/2024 increased ibuprofen from 600 to 800 mg p.o. t.i.d.. -continue Percocet , decreased Dilaudid to have dose p.r.n. -ordered ibuprofen p.r.n. as prescribed Right flank pain due to suspected acute pyelonephritis -urinalysis positive for leukocyte esterase 3+, uterine bacteria 32 -urine culture came back showing no growth at this time -status post ceftriaxone 1 g IV daily -Discontinued normal saline, IV fluids on 06/18/24 -continue pain medication as ordered Suspected acute pyelonephritis of right kidney -urinalysis positive for leukocyte esterase 3+, uterine bacteria 32 -urine culture came back showing no growth at this time -status post ceftriaxone 1 g IV daily -continue pain medication as ordered # hypokalemia- corrected -monitor BMP Anxiety -continue lorazepam p.r.n. as ordered Substance abuse -patient tested positive for cannabinoids -was counseled about the effect of substance abuse on health Obesity, BMI 29.3 -patient was counseled about healthy diet, weight reduction, low-fat diet, physical activity Incidental pulmonary nodule. -CT abd showed a 5 mm left lower lobe, outpatient follow up 4.4 cm right lower pole benign-appearing renal sinus cyst. -outpatient follow up PUD prophylaxis: Pantoprazole DVT prophylaxis: patient refusing lovenox Goals of care discussed with the patient at bedside for > 20min, FULL CODE Plan discussed with Dr. Villasenor Plan discussed with: Patient Plan discussed with: Patient, Daughter, Other (RN) My Orders My Orders Orders - RAJIV BOLTON RESIDENT Procedure Category Date Status Time Discharge DISCHARGE 06/23/24 Transmitted 06:58 Dietary Evaluation Review Comments: 1. Continue current diet 2. Consider Ensure BID to improve PO intake to provide 30g pro,700kcal Expected Outcomes/Goals: 1. Pt will consume >75% of estimated needs witin 3-5 days Date of Service: Jun 23, 2024 Billing Provider: NATHAN VILLASENOR MD Common Visit Codes: 20401-[id number] INP/OBS CARE(MOD) RAJIV BOLTON RESIDENT Jun 23, 2024 11:28 NATHAN VILLASENOR MD Jun 24, 2024 19:54
[2024-06-23] MEDS: IBUPROFEN 600 MG TAB PO SCH (13:36)
[2024-06-23] MEDS: GABAPENTIN 300 MG CAP PO SCH (13:37)
[2024-06-24 00:50] VITALS: BP 118/64; PULSE 67; RESP 16; TEMP 98.1; O2SAT 97
[2024-06-24] MEDS: HYDROcodone-ACET 10/325MG TAB PO ONE (03:44)
[2024-06-24 05:00] VITALS: BP 102/57; PULSE 67; RESP 16; TEMP 98.1; O2SAT 98
[2024-06-24 05:03] LABS: Basophils # (auto) 0 10 ^3/uL (0-0.2); Basophils % (auto) 0.4 % (0.0-2.0); Eosinophils # (auto) 0.1 10 ^3/uL (0-0.8); Eosinophils % (auto) 0.6 % (0.0-7.0); Hematocrit 39.1 % (36.0-46.0); Hemoglobin 13.6 g/dL (12.2-16.2); Lymphocytes # (auto) 4.4 10 ^3/uL (0.4-5.4); Lymphocytes % (auto) 46.3 % (10.0-50.0); Mean Corpuscular Hemoglobin 32.6 pg (28.0-32.0); Mean Corpuscular Hgb Conc. 34.7 g/dL (32.0-36.0); Mean Corpuscular Volume 93.9 fL (80.0-100.0); Monocytes # (auto) 0.8 10 ^3/uL (0-1.3); Monocytes % (auto) 8.7 % (0.0-12.0); Neutrophils # (auto) 4.1 10 ^3/uL (1.6-8.6); Nucleated Red Blood Cells % 0.3 %; Platelet Count (auto) 268 10^3/uL (140-450); Red Blood Cells 4.17 10^6/uL (4.0-5.20); Red Cell Distribution Width 13.3 % (11.8-14.3); White Blood Cell 9.4 10^3/uL (4.4-10.8)
[2024-06-24 05:16] LABS: Chloride 110 mmol/L (98-107); Potassium 3.6 mmol/L (3.5-5.1); Sodium 142 mmol/L (136-145)
[2024-06-24 05:17] LABS: Anion Gap 8 (5-15); Calcium 8.1 mg/dL (8.7-10.4); Carbon Dioxide 24 mmol/L (20-31)
[2024-06-24 05:22] LABS: Blood Urea Nitrogen 18 mg/dL (9-23); Glucose 94 mg/dL (74-106)
[2024-06-24 08:00] VITALS: PULSE 59; RESP 16; O2SAT 96
[2024-06-24 08:41] VITALS: BP 124/74; PULSE 59; RESP 16; TEMP 98.1; O2SAT 9
--- NOTE | 2024-06-24 10:06 | DVHDSRES ---
Discharge Summary Date of Admission Resident Creating Document: RAJIV BOLTON RESIDENT Jun 16, 2024 at 04:15 Date of Discharge: Jun 23, 2020 Admitting Diagnosis Right lower back pain Labs/Diagnostic Data: Laboratory Results Test 06/24/24 04:46 06/22/24 16:20 06/22/24 04:46 06/18/24 06:59 White Blood Count 9.4 10^3/uL (4.4-10.8) Red Blood Count 4.17 10^6/uL (4.0-5.20) Hemoglobin 13.6 g/dL (12.2-16.2) Hematocrit 39.1 % (36.0-46.0) Mean Corpuscular Volume 93.9 fL (80.0-100.0) Mean Corpuscular Hemoglobin 32.6 pg (28.0-32.0) Mean Corpuscular Hemoglobin Concent 34.7 g/dL (32.0-36.0) Red Cell Distribution Width 13.3 % (11.8-14.3) Platelet Count 268 10^3/uL (140-450) Mean Platelet Volume 7.3 fL (6.9-10.8) Neutrophils (%) (Auto) 44.0 % (37.0-80.0) Lymphocytes (%) (Auto) 46.3 % (10.0-50.0) Monocytes (%) (Auto) 8.7 % (0.0-12.0) Eosinophils (%) (Auto) 0.6 % (0.0-7.0) Basophils (%) (Auto) 0.4 % (0.0-2.0) Neutrophils # (Auto) 4.1 10 ^3/uL (1.6-8.6) Lymphocytes # (Auto) 4.4 10 ^3/uL (0.4-5.4) Monocytes # (Auto) 0.8 10 ^3/uL (0-1.3) Eosinophils # (Auto) 0.1 10 ^3/uL (0-0.8) Basophils # (Auto) 0 10 ^3/uL (0-0.2) Nucleated Red Blood Cells 0.3 % Sodium Level 142 mmol/L (136-145) Potassium Level 3.6 mmol/L (3.5-5.1) Chloride Level 110 mmol/L (98-107) Carbon Dioxide Level 24 mmol/L (20-31) Anion Gap 8 (5-15) Blood Urea Nitrogen 18 mg/dL (9-23) Creatinine 0.58 mg/dL (0.550-1.02) Glomerular Filtration Rate Calc 100 mL/min (>90) BUN/Creatinine Ratio 31.0 (10.0-20.0) Serum Glucose 94 mg/dL (74-106) Calcium Level 8.1 mg/dL (8.7-10.4) Vancomycin Level Trough 11.0 ug/mL (5-10) Total Bilirubin 0.2 mg/dL (0.2-1.0) Aspartate Amino Transferase (AST) < 8 U/L (13-40) Alanine Aminotransferase (ALT) 13 U/L (7-40) Alkaline Phosphatase 45 U/L (46-116) Total Protein 4.6 g/dL (5.7-8.2) Albumin 3.0 g/dL (3.2-4.8) Anti-Nuclear Antibody Comment Comment (.) BENOIT-1 Antibody <0.2 AI (0.0-0.9) SS-A/Ro Antibody >8.0 AI (0.0-0.9) SS-B/La Antibody <0.2 AI (0.0-0.9) Sm Antibody <0.2 AI (0.0-0.9) [employer] Antibody 0.2 AI (0.0-0.9) Scl-70 (Scleroderma) Antibody <0.2 AI (0.0-0.9) Anti-Double Strand DNA Antibody <1 IU/mL (0-9) Chromatin Antibody <0.2 AI (0.0-0.9) Centromere B Antibody <0.2 AI (0.0-0.9) Test 06/17/24 18:35 06/16/24 04:50 06/16/24 01:21 06/16/24 00:36 HIV (1&2) Antibody Negative (Negative) Hemoglobin A1c 4.8 % A1C (<5.7) Vitamin B12 Level 547 pg/mL (211-911) Vitamin D 25-Hydroxy 37.0 ng/mL (30.0-100) Thyroid Stimulating Hormone (TSH) 0.85 uIU/mL (0.55-4.78) Urine Color Light-yellow (Yellow) Urine Clarity Clear (Clear) Urine pH 5.0 (5.0-9.0) Urine Specific [place] 1.018 (1.001-1.035) Urine Protein Negative (Negative) Urine Ketones 3+ (Negative) Urine Blood 2+ /uL (Negative) Urine Nitrite Negative (Negative) Urine Bilirubin Negative (Negative) Urine Urobilinogen Normal mg/dL (Negative) Urine Leukocyte Esterase 3+ /uL (Negative) Urine RBC 11 /hpf (0 - 4) Urine WBC 32 /hpf (0 - 5) Urine Squamous Epithelial Cells Few /hpf (<5) Urine Bacteria None seen /hpf (None Seen) Urine Mucus Few (None Seen) Urine Glucose Normal mg/dL (Normal) Urine Opiates Screen Neg (NEGATIVE) Urine Fentanyl Screen Pos (NEGATIVE) Urine Barbiturates Screen Neg (NEGATIVE) Urine Phencyclidine Screen Neg (NEGATIVE) Urine Amphetamines Screen Neg (NEGATIVE) Urine Benzodiazepines Screen Neg (NEGATIVE) Urine Cocaine Screen Neg (NEGATIVE) Urine Cannabinoids Screen Pos (NEGATIVE) Troponin I High Sensitivity 7 ng/L (</=34) Test 06/15/24 23:42 Lactic Acid Level 0.9 mmol/L (0.4-2.0) Lipase 34 U/L (12-53) Other Laboratory Tests 06/24/24 04:46 Brief Hx & Hospital Course: Patient is 64 years old female with no significant past medical history came with a complaint of right lower back pain started 8-9 days ago. As per patient pain developed gradually, 10/10, sharp in nature, radiating to the right thigh, no aggravating factor, some relief with pain medication. Patient also complained of nausea and vomiting which was mainly food and water but no blood. Patient also reported having fever 101F at home. Patient also endorsed constipation for which she took laxatives. Patient denied any chest pain, short of breath, acute joint pain or swelling, headache, vertigo. With the symptom patient went to [facility] and as per patient patient was told she has gallbladder sludge. Recent lab workup revealed leukocytosis, WBC 13.7, urinalysis revealed leukocyte esterase 3+, WBC 32, UDS was positive for fentanyl and cannabinoids. CT abdomen and pelvis with contrast revealed- Bilateral hydronephrosis / Parapelvic cyst. Suggest correlation with CT urography. Bilateral renal calculi cannot be commented upon due to renal excretion of contrast. Incidentally detected 33 mm right renal [place] 1 simple cortical cyst. No follow-up is recommended as incidentally detected renal lesions are likely benign.Solid nodule, measuring 5 mm is seen in the left lower lobe in subpleural location, image 5, series 3. Subsegmental atelectasis is seen in the left lower lobe.An enhancing lesion seen in the right lobe of liver suggestive of a haemangioma or hepatic adenoma. CT scan of the abdomen and pelvis without contrast revealed-Punctate bilateral nonobstructing nephrolithiasis. Bilateral residual contrast in the collecting systems. No hydronephrosis in either kidney. Bilateral parapelvic cysts. Right cortical renal cyst. Normal appearance of the urinary bladder without mass or filling defect. 5 mm left lower lobe pulmonary nodule. Follow-up according to Fleischner recommendations recommended. Ultrasound of the kidney revealed- Left renal pelviectasis. There is no sonographic evidence of nephrolithiasis. 4.4 cm right lower pole benign- appearing renal sinus cyst. CXR no Acute cardiopulmonary disease. There is no rash noted during admission or on 06/16/2024 neither patient complete about any rash. On Thursday06/17/2024 patient was rash on the right inguinal region including on the right side of the vagina the right thigh, right lower buttock. Initially rash were extending but later on stopped spreading and gradually were drying and got better.. Patient is being treated with IV acyclovir 600 mg IV Q 8 H, methylprednisolone 60 IV b.i.d., vancomycin 1 g Q 18 hour to prevent secondary bacterial infection, pantoprazole 40 mg IV daily L with other supportive management including pain killer.. Patient's leukocytosis resolved, urine culture negative for any bacterial growth. Patient's rest gradually improved and rashes got better, dried up. Patient's pain was well controlled with the pain medication including Dilaudid. Later on methylprednisolone was switched to oral prednisolone 40 mg po daily. Patient was also anxious times hospitalization. P.r.n. anxiolytic lorazepam was given. Patient is being discharged with oral acyclovir 800 mg p.o.5 times a day for 7 days, hydrocodone-acetaminophen 5 x 325 q.6h p.r.n. for 2 weeks, 100 mg p.o. Q 8 H p.r.n. for 2 weeks, and prednisone 40 mg po daily for 5 days. Patient's meds were sent to the pharmacy electronically. Patient was hemodynamically stable in discharged on discharge. Advised to follow up with the PCP in 1 week. PMH-nonsignificant PSH- tubal ligation Allergy- codeine, penicillin Personal History/ Social History- ex-smoker, social alcoholic, use weeds Patient was seen today at the bedside. Patient reports pain are getting better Cardiovascular- deny acute chest pain or shortness of breath or cough or palpitation Respiratory- denies cough or short of breath or wheezing Gastrointestinal- denies any rectal bleeding, nausea or vomiting Musculoskeletal-denies acute joint swelling or tenderness or redness Neurological- denies acute dysarthria, dysphagia, change in vision Psychiatry- denies depression or SI or HI General examination- awake, alert, oriented, cooperative. HEENT- PEERLA, no acute nasal discharge Cardiovascular- S1-S2 audible, rate and rhythm regular, no murmur Respiratory- CTAB, no wheeze or rhonchi Gastrointestinal-right upper quadrant tenderness, bowel sound+. Nondistended Musculoskeletal-no acute joint swelling or tenderness or redness# Lower extremity- right thigh tender to touch, no redness or swelling Neurological- cranial nerves intact, no acute dysarthria or dysphagia Psychiatry- denies depression or SI or HIGeneral examination- awake, alert, oriented, cooperative. Skin-vesicular rash over the right groin area and on the right thigh up to above knee, but right lower back, there also scattered lesion on left upper chest, over rash are drying up, improving Condition at Discharge: Stable Final Diagnosis/Problems List Disseminated herpes zoster on the right inguinal region, right thigh,right buttock. Right flank pain due to suspected acute pyelonephritis Suspected acute pyelonephritis of right kidney hypokalemia-replenished Substance abuse-tested positive for cannabinoids Anxiety Discharge Disposition: Home Discharge Instruct/Medications Diet: Cardiac 2g Na,low cholest Activity: No Restrictions, As Tolerated Follow Up/Referral: Follow up with the PCP in 1 week Medications: Acyclovir Prednisolone Gabapentin Ibuprofen Discharge Statement: "Patient was advised to return to the ER or call 911 if any headaches, dizziness, shortness of breath, chest pain, abdominal pain, bleeding, fevers, or worsening of medical condition. Patient was counseled about treatment plan, medications, possible side effects, patientverbalized understanding. All questions were answered to the best of my ability. This discharge took greater then 30 minutes in planning, reviewing documentation, counseling the patient, and discussing with other team members." ASSESSMENT ASSESSMENT Assessment Disseminated herpes zoster on the right inguinal region, right thigh,right buttock.Right flank pain due to suspected acute pyelonephritisSuspected acute pyelonephritis of right kidney hypokalemia-replenishedSubstance abuse-tested positive for cannabinoidsAnxiety Date of Service: Jun 24, 2024 Billing Provider: NATHAN SHEPHERD MD Common Visit Codes: 61773-LSJ/OBS DISCH DAY >30min RAJIV BOLTON RESIDENT Jun 24, 2024 10:06 NATHAN SHEPHERD MD Jun 24, 2024 19:54
[2024-06-24] MEDS ORDERED: ACYC1TAB3 PO (10:24)
[2024-06-24] MEDS ORDERED: GABA-339 PO (10:24)
[2024-06-24] MEDS ORDERED: PRED20TA2 PO (10:24)
[2024-06-24] MEDS ORDERED: IBUP1TAB5 PO (10:24)
[2024-06-24] MEDS ORDERED: HYDR-4902 PO (11:05)
[2024-06-24 12:43] VITALS: BP 126/76; PULSE 90; RESP 18; TEMP 98; O2SAT 96
[2024-06-24 13:38] VITALS: BP 124/74; PULSE 59; RESP 16; TEMP 98.1; O2SAT 96
== END 2024-06-24 15:50 | disposition home or self-care (01) | DRG 690 ==
LOC: ER 23:26 → EDBD 23:26 → OVERFLOW 06-16 04:15 → CENTRAL 06-17 11:17 → TELE-CENTR 06-17 16:50 → CENTRAL 06-17 23:59
PROVIDERS: ADMIT Internal Medicine Geriatric Medicine; ATTEND Internal Medicine Geriatric Medicine
DX: N10 Acute pyelonephritis (principal); B02.7 Disseminated zoster; N28.1 Cyst of kidney, acquired; E87.6 Hypokalemia; F41.9 Anxiety disorder, unspecified; E66.9 Obesity, unspecified; F19.10 Other psychoactive substance abuse, uncomplicated; F12.10 Cannabis abuse, uncomplicated; Z88.5 Allergy status to narcotic agent; Z88.0 Allergy status to penicillin; Z87.891 Personal history of nicotine dependence; Z68.29 Body mass index [BMI] 29.0-29.9, adult; Z98.51 Tubal ligation status
CPT/HCPCS: 36415; 71045; 72148; 74176; 74177; 76775; 80048; 80053; 80202; 80307; 81001; 82306; 82565; 82607; 83036; 83516; 83605; 83690; 84443; 84484; 85025; 86225; 86235; 86703; 87086; G0378; J1885; J2405; J2470